=== PATIENT | female | born 1955 | race Asian ===

== ENCOUNTER 2017-01-10 14:27 | Inpatient (IN) | payer OTHER ==
[~2017-01-10] VITALS: Ht 149.9 cm; Wt 55.0 kg
[~2017-01-10 14:27] MED LIST: ACET-1257 PO; ASPCH81X PO; ATV/1 PO; BNT10 PO; CALC-354 PO; CZR50 PO; LPT10 PO; MTR500 PO; PLV75 PO; PRLSR20 PO; TPRSR/100 PO; VERA1TAB53 PO
[2017-01-10] MEDS ORDERED: ONDANSETRON 4MG OD TAB ONE (15:25)
[2017-01-10] MEDS ORDERED: VERA120T65 PO (15:33)
[2017-01-10] MEDS ORDERED: PLV75 PO (15:33)
[2017-01-10] MEDS ORDERED: CALCTAB23 PO (15:33)
[2017-01-10] MEDS ORDERED: LOSA100T65 PO (15:33)
[2017-01-10] MEDS ORDERED: LPT/20 PO (15:33)
[2017-01-10] MEDS ORDERED: AcetaZOLAMIDE 250 MG TAB PO STA (15:36)
[2017-01-10] MEDS ORDERED: BRIMONIDINE TARTRATE 0.2% 5ML OPR ONE (15:45)
[2017-01-10] MEDS ORDERED: BIMATOPROST 0.01% OP SOLN 2.5 ML BTL OPR ONE (15:45)
[2017-01-10] MEDS ORDERED: TIMOLOL MALEATE 0.5% OP SOLN 5 ML BTL OPR ONE (15:45)
[2017-01-10] MEDS ORDERED: PROPARACAINE HCL 0.5% OP SOLN 15 ML BTL OP STA (16:22)
[2017-01-10] MEDS ORDERED: PROPARACAINE HCL 0.5% OP SOLN 15 ML BTL ONE (16:23)
[2017-01-10] MEDS ORDERED: [UNRECOGNIZED DRUG - OTHER] OP SCH (18:00)
[2017-01-10] MEDS ORDERED: ONDANSETRON 4MG OD TAB PO ONE (18:30)
--- NOTE | 2017-01-10 19:25 | EMERGENCY ROOM VISIT NOTE ---
History Report prepared by Alfredo: Rosa M Osei Under the Supervision of: Dr. Josi Bell D.O. First contact with patient: 15:06 Chief Complaint: HEAD PAIN Stated Complaint: LASER EYE SURG. TODAY, PRESSURE IN HEAD NOW History of Present Illness The patient is a 61 year old female who presents to the Emergency Room with complaints of persistent right head pain starting several hours ago. The patient had laser eye surgery today in her right eye. She reports there was pressure in her right eye and they made a small hole to relieve some of the pressure. When she got home after the surgery about an hour later, she started having right sided head pain, neck stiffness, chills, diaphoresis, nausea, blurry vision, and generalized weakness. The eye doctor did tell her that she might have some blurry vision after the procedure, but not for this long. He did not mention headache. She has never experienced this type of headache before. She took Tylenol to no significant relief. She denies any abdominal pain , back pain, or numbness. Source of History: patient Onset: several hours ago Position: head (right side) Quality: other (pain) Timing: other (persistent) Associated Symptoms: + chills, + diaphoresis, + neck pain, + nausea, + weakness, No abdominal pain, No back pain, No numbness Note: Pt reports blurry vision. Review of Systems See HPI for pertinent positives & negatives. A total of 10 systems reviewed and were otherwise negative. Past Medical & Surgical Medical Problems: (1) Aortic valve sclerosis (2) C. difficile colitis (3) Cervical dysplasia (4) Cervical spinal stenosis (5) CVA (cerebral vascular accident) (6) Dyslipidemia (7) History of uterine cancer (8) Hypertension Nos (9) S/p breast lesion excision (10) Small bowel obstruction (11) TIA (transient ischemic attack) Surgical Problems: (1) Status post hysterectomy Family History CVA BROTHER (at age 48) Cancer MOTHER (unknown what type) Early CAD BROTHER (passed at age 53 from [place]) Social History Smoking Status: Never Smoker Alcohol Use: none Drug Use: none Housing Status: lives with family Current/Historical Medications Scheduled Atorvastatin (Atorvastatin Calcium), 20 MG PO HS Calcium Carbonate-Cholecalcife (Caltrate 600+D), 1 TABLET PO BID Calcium Carbonate-Vitamin D (Calcium 600-D), 1 TAB PO BID Clopidogrel Bisulfate (Clopidogrel), 75 MG PO DAILY Losartan Potassium (Cozaar), 100 MG PO DAILY Metoprolol Succinate (Metoprolol Succinate ER), 100 MG PO DAILY Prednisolone Sod Phos (Prednisolone Sodium Phosp), 1 DROPS OP Q2HWA Verapamil HCl (Verapamil HCl ER), 120 MG PO DAILY Scheduled PRN Acetaminophen (Tylenol Extra Strength), 1,000 MG PO Q8 PRN for Pain Allergies Coded Allergies: Cephalexin (Unverified Allergy, Severe, TONGUE SWELLING, 05/03/14) Ethanol (Verified Allergy, Severe, ANAPHYLAXIS, 05/03/14) Paclitaxel (Verified Allergy, Severe, ANAPHYLAXIS, 05/03/14) Polyoxyethylated [place] Oil (Verified Allergy, Severe, ANAPHYLAXIS, ) Physical Exam Vital Signs Date Time Temp Pulse Resp B/P (MAP) Pulse Ox O2 Delivery O2 Flow Rate FiO2 01/10/17 20:34 Room Air 01/10/17 19:44 74 17 155/75 95 Room Air 01/10/17 18:24 84 16 156/78 95 Room Air 01/10/17 18:00 73 16 159/76 97 Room Air 01/10/17 15:55 67 16 165/86 97 Room Air 01/10/17 14:31 36.5 74 18 96 Room Air Physical Exam GENERAL: alert, uncomfortable appearing, well nourished, no distress, non-toxic EYE EXAM: photosensitive, mild right anisocoria, no hyphema, no subconjunctival hemorrhage, no visual field cuts OROPHARYNX: no exudate, no erythema, lips, buccal mucosa, and tongue normal and mucous membranes are moist NECK: supple, no nuchal rigidity, no adenopathy, non-tender LUNGS: Clear to auscultation. Normal chest wall mechanics HEART: no murmurs, S1 normal and S2 normal ABDOMEN: abdomen soft, non-tender, normo-active bowel sounds, no masses, no rebound or guarding. BACK: Back is symmetrical on inspection and there is no deformity, no midline tenderness, no CVA tenderness. SKIN: no rashes and no bruising UPPER EXTREMITIES: upper extremities are grossly normal. LOWER EXTREMITIES: No pitting edema. NEURO EXAM: Normal sensorium, cranial nerves II-XII grossly intact, normal speech, no gross weakness of arms, no gross weakness of legs, no dysarthria. Medical Decision & Procedures Laboratory Results 01/10/17 19:30 Red Blood Count 4.82, Mean Corpuscular Volume 84.6, Mean Corpuscular Hemoglobin 29.0, Mean Corpuscular Hemoglobin Concent 34.3, Mean Platelet Volume 8.9, Neutrophils (%) (Auto) 73.7, Lymphocytes (%) (Auto) 21.8, Monocytes (%) (Auto) 3.7, Eosinophils (%) (Auto) 0.6, Basophils (%) (Auto) 0.1, Neutrophils # (Auto) 5.80, Lymphocytes # (Auto) 1.72, Monocytes # (Auto) 0.29, Eosinophils # (Auto) 0.05, Basophils # (Auto) 0.01 Test 01/10/17 19:30 White Blood Count 7.88 K/uL (4.8-10.8) Red Blood Count 4.82 M/uL (4.2-5.4) Hemoglobin 14.0 g/dL (12.0-16.0) Hematocrit 40.8 % (37-47) Mean Corpuscular Volume 84.6 fL (80-100) Mean Corpuscular Hemoglobin 29.0 pg (25-34) Mean Corpuscular Hemoglobin Concent 34.3 g/dl (32-36) Platelet Count 300 K/uL (130-400) Mean Platelet Volume 8.9 fL (7.4-10.4) Neutrophils (%) (Auto) 73.7 % Lymphocytes (%) (Auto) 21.8 % Monocytes (%) (Auto) 3.7 % Eosinophils (%) (Auto) 0.6 % Basophils (%) (Auto) 0.1 % Neutrophils # (Auto) 5.80 K/uL (1.4-6.5) Lymphocytes # (Auto) 1.72 K/uL (1.2-3.4) Monocytes # (Auto) 0.29 K/uL (0.11-0.59) Eosinophils # (Auto) 0.05 K/uL (0-0.5) Basophils # (Auto) 0.01 K/uL (0-0.2) RDW Standard Deviation 38.0 fL (36.4-46.3) RDW Coefficient of Variation 12.5 % (11.5-14.5) Immature Granulocyte % (Auto) 0.1 % Immature Granulocyte # (Auto) 0.01 K/uL (0.00-0.02) Osmolality 286 mOsm/kg (280-300) Magnesium Level 2.3 mg/dl (1.8-2.4) Medications Administered Medications (Trade) Dose Ordered Sig/Efren Route Start Time Stop Time Status Last Admin Dose Admin Ondansetron HCl (Zofran Odt) 4 mg STK-MED ONCE .ROUTE 01/10/17 15:25 01/10/17 15:26 DC 01/10/17 15:30 4 MG Acetazolamide (Diamox Tab) 500 mg NOW STAT PO 01/10/17 15:36 01/10/17 15:42 DC 01/10/17 15:52 500 MG Brimonidine Tartrate (Alphagan 0.2% Soln) 1 drops NOW ONCE OPR 01/10/17 15:45 01/10/17 15:47 DC 01/10/17 15:52 1 DROPS Timolol Maleate (Timoptic 0.5% Oph Soln) 1 drops NOW ONCE OPR 01/10/17 15:45 01/10/17 15:47 DC 01/10/17 15:52 1 DROPS Bimatoprost (Lumigan 0.01%) 1 drops NOW ONCE OPR 01/10/17 15:45 01/10/17 15:47 DC 01/10/17 15:53 1 DROPS Prednisolone Sodium Phosphate (Inflamase-Forte Soln) 1 drops Q2HWA OP 01/10/17 18:00 01/10/17 21:44 DC 01/10/17 17:39 1 DROPS Ondansetron HCl (Zofran Odt) 4 mg ONE ONCE PO 01/10/17 18:30 01/10/17 18:31 DC 01/10/17 18:36 4 MG Mannitol 275 ml/ Empty Bag 275 ml @ 366.667 mls/hr NOW ONCE IV 01/10/17 19:30 01/10/17 20:14 DC 01/10/17 19:37 366.667 MLS/HR Procedure Bedside puff tonometer reveals right eye pressure in the 70s. ED Course 1510: The patient was evaluated in room C6. A complete history and physical exam was performed. 1515: I discussed the patient's case with Dr. Ashley, [facility] - ophthalmology. He will come to see the patient. 1520: Bedside puff tonometer was performed. 1525: Zofran Odt 4 mg PO. 1531: Dr. Ashley has provided specific instructions for eyedrops and Diamox. The drops will be repeated and IOP will be reassessed. 1536: Diamox Tab 500 mg PO. 1545: Bimatoprost 1 drops OPR, Timolol Maleate 1 drops OPR, Brimonidine Tartrate 1 drops OPR. 1620: Dr. Ashley is at bedside examining the patient. 1623: Proparacaine HCl 2 drop OPR. 1630: I reevaluated the patient. I updated her on the results. Dr. Ashley has examined the patient. 1656: I reevaluated the patient. She is resting comfortably. 1730: I reevaluated the patient. Her pressures are still high. 1810: I reevaluated the patient. Her pressure is still elevated in the 70s. 181: I spoke with Dr. Ashley. He recommends another round of eye drops. 1800: Prednisolone Sodium Phosphate 1 drops OP. 1900: Repeat right IOP with tonopen 64. Pt still having WAGGONER and complaining of worsening vision. 1906: Updated Dr. Ashley on IOP and pt condition. At this time, advises pt should be given IV mannitol and agrees with admission for additional monitoring. Prednisolone should still be given every 2 hours and all other drops every 6 hours. Discussed with ed pharmacist. She will calculate dose/ mix of med. 1946: Updated Dr. Ashley again. Recommends diamox 500 mg at 2300 and another dose in the morning. Medical Decision Medication Reconciliation: I attest that I have personally reviewed the patient' s current medication list. Blood pressure screening: Patient was found to have an elevated blood pressure and was referred to their primary doctor for recheck and further treatment. Multiple repeat bedside evaluations and repeat discussion with ophtho. Concern for risk of permanent vision loss/damage due to elevated IOP. Pt with persistent sx despite initiation of several drops and oral medication in the ER and after repeat IOP assessments and discussion, ophtho advised IV mannitol. Pt admitted, baseline labs pulled due to use of mannitol and possible ADR's. Pt aware of plan, discussion with Dr. Roa, need for additional treatment , risks of treatment and risks of current condition. She verbalized understanding and is agreeable. Pt with otw non focal neuro exam, doubt cva/ dissection/ich/cvs thrombus/meningitis. given timing of sx onset after procedure, most likely likely post procedural complication. Consults Time Called: 1513 Consulting Physician: Dr. Ashley [facility] - ophthalmology Returned Call: 1514 I discussed the patient's case with him. He will come to see the patient. Additional Consults: Time Called: 1934 Consulted Physician: [facility] Returned Call: 1939 Additional Comments: Discussed with Dr. Gagnon. Impression Primary Impression: Acute angle-closure glaucoma of right eye Additional Impressions: Visual changes Headache Post surgical complication Critical Care I have personally spent 60 minutes of critical care time in the direct management of this patient. This includes bedside care, interpretation of diagnostic studies, and testing, discussion with consultants, patient, and family members, and other required patient management activities. This 60 minutes is in excess of all separately billable procedures. Involved system: ophthamology Scribe Attestation The scribe's documentation has been prepared under my direction and personally reviewed by me in its entirety. I confirm that the note above accurately reflects all work, treatment, procedures, and medical decision making performed by me. Departure Information Prescriptions Prednisolone Sod Phos (Prednisolone Sodium Phosp) 150 Drops/10 Ml Soln 1 DROPS OP Q2HWA for 30 Days, #1 BTL Prov: Keshia Ramos, DO 01/11/17 Referrals No Doctor, Assigned (PCP) Patient Instructions [facility] Problem Qualifiers Additional Impressions: Headache Headache type: unspecified Headache chronicity pattern: acute headache Intractability: not intractable Qualified Codes: R51 - Headache Post surgical complication Surgical complication system/body Area: eye Surgical complication type: other Qualified Codes: H59.89 - Other postprocedural complications and disorders of eye and adnexa, not elsewhere classified
[2017-01-10] MEDS ORDERED: MANNITOL 20% IV ONE (19:30)
[2017-01-10] MEDS ORDERED: 0.2 MICRON FILTER SET 1 EA IV ONE ×2 (19:30)
[2017-01-10 20:05] LABS: BASO % 0.1 %; BASO ABS # 0.01 K/uL (0-0.2); COMPLETE YES; EOS % 0.6 %; HEMATOCRIT 40.8 % (37-47); IG% 0.1 %; LYMPH % 21.8 %; LYMPH ABS # 1.72 K/uL (1.2-3.4); MEAN CELL VOLUME 84.6 fL (80-100); MEAN CORPUSCULAR HGB CONC 34.3 g/dl (32-36); MEAN PLATELET VOLUME 8.9 fL (7.4-10.4); MONO % 3.7 %; NEUT % 73.7 %; PLATELET COUNT 300 K/uL (130-400); RED BLOOD COUNT 4.82 M/uL (4.2-5.4); WHITE BLOOD COUNT 7.88 K/uL (4.8-10.8)
[2017-01-10 20:09] LABS: BUN/CREATININE RATIO 17.4 (10-20); CALCIUM 8.8 mg/dl (8.5-10.1); CREATININE 0.63 mg/dl (0.60-1.20); MAGNESIUM 2.3 mg/dl (1.8-2.4); POTASSIUM 3.5 mmol/L (3.5-5.1)
--- NOTE | 2017-01-10 20:19 | OPHTHALMOLOGY CONSULTATION ---
DATE OF CONSULTATION: 01/10/2017 CHIEF COMPLAINT: Right eye pain and nausea. HISTORY OF PRESENT ILLNESS: The patient is a very pleasant 61-year-old, who was at our office this morning and had a laser peripheral iridotomy done on the right eye. Her 1-hour pressure check following her laser, pressure measured 30 in the right eye and she was sent home with instructions to come back for further monitoring in the office over the next couple of days. However, during the day she developed worsening eye pain and nausea and presented to the Emergency Room. The Emergency Room staff measured her pressure and found it to be 74 by the air puff tonometer. The ER called our office and I gave instructions to give her a dose of oral Diamox 500 mg, topical timolol, topical brimonidine, and topical latanoprost. At the time of my exam, her nausea has improved some, although she still has significant head pain. PHYSICAL EXAMINATION: Visual acuity as measured on a near card with reading glasses was 20/70 in the right eye. The right pupil was mid dilated. The anterior chamber was deep, but there was some edema of the cornea and anterior chamber cellular reaction. There was a LPI superiorly, but there was a small amount of debri in that area and so I could not make 100% determination that the iridotomy was patent. The lens had 1+ nuclear sclerosis. Fundus examination showed a cup to disc ratio of 0.5 on the right. The rest of the exam was unremarkable. Pressure as measured by Fady-Pen by me was 63 in the right eye and 28 in the left eye. IMPRESSION: Ms. Barreto is having a pressure spike following a laser peripheral iridotomy in the right eye. I have advised the Emergency Room staff to give her another dose of her topical medications in about 10 minutes. She is then to recheck her pressure in half an hour. Once her pressure is in the 30s, I have advised that she can be discharged with instructions to continue using her drops every 6 hours. In addition, I have added prednisolone drops every 2 hours to the right eye. She should also use her Diamox 500 mg tonight and then 500 mg tomorrow morning and then she should be seen in our office. If the pressure cannot be lowered into the 30s than I have given instructions to the Emergency Room staff to give her a dose of IV mannitol. If the pressure still does not respond, then they are to call me again for further instructions. I can be reached at [phone] with any questions. SERENITY
[2017-01-10] MEDS ORDERED: POTASSIUM CHLORIDE 10 MEQ TABCR PO STA (20:27)
[2017-01-10 20:34] VITALS: Ht 149.9 cm; Wt 55.0 kg
[2017-01-10] MEDS ORDERED: POTASSIUM CHLORIDE 10 MEQ TABCR ONE (20:46)
--- NOTE | 2017-01-10 21:03 | History and Physical ---
History & Physical Date & Time of Service: Jan 10, 2017 at 20:29 Chief Complaint: Laser Eye Surg. Today, Pressure In Head Now Primary Care Physician: Dr. June Lantigua History of Present Illness Source: patient, clinic records This is a 61 year old female with PMH of CVA, HTN, HL, uterine CA s/p surgery and chemo, and other problems listed below who presents to the ED for right sided headache. Patient underwent laser peripheral iridotomy on the right eye today by Dr. Ashley. Pt states after she got home from surgery she developed sharp right sided headache, right eye blurry vision, and nausea. She took Tylenol at home without relief. She states pain was rated 10/10 initially and now improved to 8/10. Vision is still blurred in right eye. In the ER patient was found to have elevated intraocular pressure. She was seen by her machine tester Dr. Ashley in the ER. She was treated with oral Diamox and topical timolol, brimonidine, and latanoprost. Intraocular pressure remained elevated. She is now being given a dose of IV mannitol. She reports feeling anxious in the ER. She denies chest pain, SOB, vomiting, abdominal pain, vomiting, diarrhea, urinary changes. Pt reports missing her medications today. Past Medical/Surgical History Medical Problems: (1) Aortic valve sclerosis Status: Chronic (2) C. 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 Status: Chronic (6) Dyslipidemia Status: Chronic (7) History of uterine cancer Permanent Comment: s/p surgery and chemo Status: Chronic (8) Hypertension Nos Status: Chronic (9) S/p breast lesion excision Status: Chronic (10) Small bowel obstruction Status: Resolved (11) TIA (transient ischemic attack) Status: Chronic Surgical Problems: (1) Status post hysterectomy Permanent Comment: uterine Ca Status: Chronic Family History CVA BROTHER (at age 48) Cancer MOTHER (unknown what type) Early CAD BROTHER (passed at age 55 from [place]) Social History Smoking Status: Never Smoker Alcohol Use: none Drug Use: none Housing status: lives with family (with daughter) Immunizations History of Influenza Vaccine: Unknown History of Tetanus Vaccine?: Unknown History of Pneumococcal: Unknown History of Hepatitis B Vaccine: Unknown Allergies Coded Allergies: Cephalexin (Unverified Allergy, Severe, TONGUE SWELLING, 05/03/14) Ethanol (Verified Allergy, Severe, ANAPHYLAXIS, 05/03/14) Paclitaxel (Verified Allergy, Severe, ANAPHYLAXIS, 05/03/14) Polyoxyethylated [place] Oil (Verified Allergy, Severe, ANAPHYLAXIS, ) Home Medications Scheduled Atorvastatin (Atorvastatin Calcium), 20 MG PO HS Calcium Carbonate-Cholecalcife (Caltrate 600+D), 1 TABLET PO BID Calcium Carbonate-Vitamin D (Calcium 600-D), 1 TAB PO BID Clopidogrel Bisulfate (Clopidogrel), 75 MG PO DAILY Losartan Potassium (Cozaar), 100 MG PO DAILY Metoprolol Succinate (Metoprolol Succinate ER), 100 MG PO DAILY Verapamil HCl (Verapamil HCl ER), 120 MG PO DAILY Scheduled PRN Acetaminophen (Tylenol Extra Strength), 1,000 MG PO Q8 PRN for Pain Review of Systems Ten systems reviewed and negative except as noted in HPI. Physical Exam Vital Signs Date Time Temp Pulse Resp B/P (MAP) Pulse Ox O2 Delivery O2 Flow Rate FiO2 01/10/17 19:44 74 17 155/75 95 Room Air 01/10/17 18:24 84 16 156/78 95 Room Air 01/10/17 18:00 73 16 159/76 97 Room Air 01/10/17 15:55 67 16 165/86 97 Room Air 01/10/17 14:31 36.5 74 18 96 Room Air General Appearance: WD/WN, no apparent distress, + pertinent finding (alert cooperative 61 year old female) Head: normocephalic, atraumatic Eyes: normal inspection, EOMI, sclerae normal, + pertinent finding (right pupil moderately dilated. left pupil reactive to light. vision 20/50 in right eye. 20/20 in left eye.) ENT: hearing grossly normal, pharynx normal Neck: supple, trachea midline Respiratory/Chest: lungs clear, normal breath sounds, no respiratory distress, no accessory muscle use Cardiovascular: regular rate, rhythm, + systolic murmur (grade II) Abdomen/GI: normal bowel sounds, non tender, soft Extremities/Musculoskelatal: no calf tenderness, no pedal edema Neurologic/Psych: alert, normal mood/affect, oriented x 3 Skin: normal color, warm/dry Diagnostics Laboratory Results Results Past 24 Hours Test 01/10/17 19:30 Range/Units White Blood Count 7.88 4.8-10.8 K/uL Red Blood Count 4.82 4.2-5.4 M/uL Hemoglobin 14.0 12.0-16.0 g/dL Hematocrit 40.8 37-47 % Mean Corpuscular Volume 84.6 80-100 fL Mean Corpuscular Hemoglobin 29.0 25-34 pg Mean Corpuscular Hemoglobin Concent 34.3 32-36 g/dl Platelet Count 300 130-400 K/uL Mean Platelet Volume 8.9 7.4-10.4 fL Neutrophils (%) (Auto) 73.7 % Lymphocytes (%) (Auto) 21.8 % Monocytes (%) (Auto) 3.7 % Eosinophils (%) (Auto) 0.6 % Basophils (%) (Auto) 0.1 % Neutrophils # (Auto) 5.80 1.4-6.5 K/uL Lymphocytes # (Auto) 1.72 1.2-3.4 K/uL Monocytes # (Auto) 0.29 0.11-0.59 K/uL Eosinophils # (Auto) 0.05 0-0.5 K/uL Basophils # (Auto) 0.01 0-0.2 K/uL RDW Standard Deviation 38.0 36.4-46.3 fL RDW Coefficient of Variation 12.5 11.5-14.5 % Immature Granulocyte % (Auto) 0.1 % Immature Granulocyte # (Auto) 0.01 0.00-0.02 K/uL Sodium Level 140 136-145 mmol/L Potassium Level 3.5 3.5-5.1 mmol/L Chloride Level 107 98-107 mmol/L Carbon Dioxide Level 25 21-32 mmol/L Anion Gap 8.0 3-11 mmol/L Blood Urea Nitrogen 11 7-18 mg/dl Creatinine 0.63 0.60-1.20 mg/dl Est Creatinine Clear Calc Drug Dose 69.2 ml/min Estimated GFR () 110.6 Estimated GFR (Non- 95.5 BUN/Creatinine Ratio 17.4 10-20 Random Glucose 100 70-99 mg/dl Osmolality 286 280-300 mOsm/kg Calcium Level 8.8 8.5-10.1 mg/dl Magnesium Level 2.3 1.8-2.4 mg/dl Impression Assessment and Plan ELEVATED INTRAOCULAR PRESSURE S/p laser peripheral iridotomy on the right eye today 01/10/[address] Ashley Treated in ER with oral Diamox and topical timolol, brimonidine, and latanoprost ; intraocular pressure remained elevated; now being given IV mannitol Seen by Dr. Ashley in ER; case will be discussed with him by admitting attending HYPERTENSION BP moderately elevated in ER to 150s-160s Likely due to pain/ anxiety and missed her usual antihypertensives today Continue losartan, metoprolol, verapamil CEREBROVASCULAR DISEASE Continue Plavix and statin GERD Continue PPI DISPOSITION Admit to med/ surg Lives with daughter Follows with Dr. June Lantigua for primary care Patient seen in collaboration with Dr. Louise. Please see his addendum for additional recommendations. Assessment/Plan IM ATTENDING : Hx obtained from px and records. Patient seen and examined. Preceding documentation by Ruma Fitzgerald PA-C, reviewed. FINAL ASSESSMENT AND PLAN as follows : 1. acute narrow angle closure glaucoma, R recent R eye laser iridotomy some improvement after initial intervention in the ER 2. hypertension, slightly elevated 3. hx cerebrovascular accident 4. hx uterine CA sp surgery GMF analgesia, anti-emetics monitor response IOP response to IV mannitol and Diamox Further management as per px's machine tester (Dr. Ashley) continue home BP meds DVT prophylaxis, SCDs. Full code.
[2017-01-10 21:17] VITALS: O2SAT 97
[2017-01-10] MEDS ORDERED: CLOPIDOGREL BISULFATE 75 MG TAB PO ONE (21:22)
[2017-01-10] MEDS ORDERED: LOSARTAN POTASSIUM 50 MG TAB PO ONE (21:22)
[2017-01-10] MEDS ORDERED: ATORVASTATIN 20 MG TAB PO ONE (21:22)
[2017-01-10] MEDS ORDERED: MoRPHine SULFATE 4 MG/ML 1 ML CARP\\VIAL IV PRN (21:30)
[2017-01-10] MEDS ORDERED: ONDANSETRON INJ 2 MG/ML 2 ML VIAL IV PRN (21:30)
[2017-01-10] MEDS ORDERED: TRAMADOL HCL 50 MG TAB PO PRN (21:30)
[2017-01-10 21:40] VITALS: BP 159/105; PULSE 70; O2SAT 97
[2017-01-10] MEDS: [UNRECOGNIZED DRUG - OTHER] OP SCH (22:37)
[2017-01-10] MEDS ORDERED: AcetaZOLAMIDE 250 MG TAB PO ONE (23:00)
[2017-01-10] MEDS ORDERED: AcetaZOLAMIDE 250 MG TAB PO SCH (23:00)
[2017-01-11] MEDS: [UNRECOGNIZED DRUG - OTHER] OP SCH ×5 (06:01→14:10)
--- NOTE | 2017-01-11 06:04 | HISTORY & PHYSICAL EXAMINATION ---
DATE OF ADMISSION: 01/10/2017 IM ATTENDING : Olinda obtained from px and records. Patient seen and examined. Preceding documentation by Ruma Fitzgerald PA-C, reviewed. FINAL ASSESSMENT AND PLAN as follows : 1. acute narrow angle closure glaucoma, R recent R eye laser iridotomy some improvement after initial intervention in the ER 2. hypertension, slightly elevated 3. hx cerebrovascular accident 4. hx uterine CA sp surgery GMF analgesia, anti-emetics monitor response IOP response to IV mannitol and Diamox Further management as per px's air tucker (Dr. Ashley) continue home BP meds DVT prophylaxis, SCDs. Full code. MTDD
[2017-01-11 07:30] VITALS: BP 105/66; PULSE 53; TEMP 36.5; O2SAT 97
[2017-01-11] MEDS: ACETAMINOPHEN 325 MG TAB PO PRN ×2 (07:50→14:10)
[2017-01-11 07:51] LABS: BUN/CREATININE RATIO 15.4 (10-20); CALCIUM 8.8 mg/dl (8.5-10.1); CREATININE 0.92 mg/dl (0.60-1.20); POTASSIUM 4.3 mmol/L (3.5-5.1)
[2017-01-11] MEDS ORDERED: CLOPIDOGREL BISULFATE 75 MG TAB PO SCH (08:00)
[2017-01-11] MEDS ORDERED: AcetaZOLAMIDE 250 MG TAB PO ONE (08:00)
[2017-01-11] MEDS ORDERED: LOSARTAN POTASSIUM 50 MG TAB PO SCH (08:00)
[2017-01-11] MEDS ORDERED: METOPROLOL SUCC 50MG EXT REL TAB PO SCH (08:00)
[2017-01-11] MEDS ORDERED: VERAPAMIL HCL 120 MG TABCR PO SCH (12:00)
[2017-01-11] MEDS ORDERED: [UNRECOGNIZED DRUG - CODE] OP (14:45)
--- NOTE | 2017-01-11 14:47 | Discharge Instructions ---
Discharge Instructions Date of Service Jan 11, 2017. Admission Reason for Admission: Acute Angle-Closure Glaucoma Of Right Eye Discharge Discharge Diagnosis / Problem: Acute Angle-Closure Glaucoma of R Eye Discharge Goals Goal(s): Decrease discomfort, Improve function, Diagnostic testing, Therapeutic intervention Activity Recommendations Activity Limitations: resume your previous activity . Instructions / Follow-Up Instructions / Follow-Up Please follow-up with ophthalmology Please follow-up with Dr. June Lantigua (you will get a call with date/time) Current Hospital Diet Patient's current hospital diet: AHA Diet (Heart Healthy) Discharge Diet Recommended Diet: AHA Diet (Heart Healthy) Pending Studies Studies pending at discharge: no Medical Emergencies . Who to Call and When: Medical Emergencies: If at any time you feel your situation is an emergency, please call 911 immediately. . Non-Emergent Contact Non-Emergency issues call your: Primary Care Provider . . "Provider Documentation" section prepared by Keshia Ramos. . VTE Core Measure Inpt VTE Proph given/why not?: SCD's
--- NOTE | 2017-01-11 14:49 | Discharge Summary ---
Discharge Summary Date of Service Jan 11, 2017. Discharge Summary Admission Date: Jan 10, 2017 at 20:34 Discharge Date: Jan 11, 2017 Discharge Disposition: Home Principal Diagnosis: Acute Angle Glaucoma of R Eye Medication Reconciliation New Medications: Prednisolone Sod Phos (Prednisolone Sodium Phosp) 150 Drops/10 Ml Soln 1 DROPS OP Q2HWA for 30 Days, #1 BTL Continued Medications: Acetaminophen (Tylenol Extra Strength) 500 Mg Tab 1000 MG PO Q8 PRN for Pain Atorvastatin (Atorvastatin Calcium) 20 Mg Tab 20 MG PO HS, #30 Calcium Carbonate-Cholecalcife (Caltrate 600+D) 1 Tab Tab 1 TABLET PO BID Calcium Carbonate-Vitamin D (Calcium 600-D) 1 Tab Tab 1 TAB PO BID, #60 Clopidogrel Bisulfate (Clopidogrel) 75 Mg Tab 75 MG PO DAILY, #30 Losartan Potassium (Cozaar) 100 Mg Tab 100 MG PO DAILY, #30 Metoprolol Succinate (Metoprolol Succinate ER) 100 Mg Tabcr 100 MG PO DAILY Verapamil HCl (Verapamil HCl ER) 120 Mg Tabcr 120 MG PO DAILY, #30 Admission Information HPI (per Admitting provider): This is a 61 year old female with PMH of CVA, HTN, HL, uterine CA s/p surgery and chemo, and other problems listed below who presents to the ED for right sided headache. Patient underwent laser peripheral iridotomy on the right eye today by Dr. Ashley. Pt states after she got home from surgery she developed sharp right sided headache, right eye blurry vision, and nausea. She took Tylenol at home without relief. She states pain was rated 10/10 initially and now improved to 8/10. Vision is still blurred in right eye. In the ER patient was found to have elevated intraocular pressure. She was seen by her soft work cigar machine operator Dr. Ashley in the ER. She was treated with oral Diamox and topical timolol, brimonidine, and latanoprost. Intraocular pressure remained elevated. She is now being given a dose of IV mannitol. She reports feeling anxious in the ER. She denies chest pain, SOB, vomiting, abdominal pain, vomiting, diarrhea, urinary changes. Pt reports missing her medications today. Physical Exam (per Admitting): General Appearance: WD/WN, no apparent distress, + pertinent finding (alert cooperative 61 year old female) Head: normocephalic, atraumatic Eyes: normal inspection, EOMI, sclerae normal, + pertinent finding (right pupil moderately dilated. left pupil reactive to light. vision 20/50 in right eye. 20/20 in left eye.) ENT: hearing grossly normal, pharynx normal Neck: supple, trachea midline Respiratory/Chest: lungs clear, normal breath sounds, no respiratory distress, no accessory muscle use Cardiovascular: regular rate, rhythm, + systolic murmur (grade II) Abdomen/GI: normal bowel sounds, non tender, soft Extremities/Musculoskelatal: no calf tenderness, no pedal edema Neurologic/Psych: alert, normal mood/affect, oriented x 3 Skin: normal color, warm/dry Hospital Course History of Present Illness Source: patient, clinic records This is a 61 year old female with PMH of CVA, HTN, HL, uterine CA s/p surgery and chemo, and other problems listed below who presents to the ED for right sided headache. Patient underwent laser peripheral iridotomy on the right eye today by Dr. Ashley. Pt states after she got home from surgery she developed sharp right sided headache, right eye blurry vision, and nausea. She took Tylenol at home without relief. She states pain was rated 10/10 initially and now improved to 8/10. Vision is still blurred in right eye. In the ER patient was found to have elevated intraocular pressure. She was seen by her soft work cigar machine operator Dr. Ashley in the ER. She was treated with oral Diamox and topical timolol, brimonidine, and latanoprost. Intraocular pressure remained elevated. She is now being given a dose of IV mannitol. She reports feeling anxious in the ER. She denies chest pain, SOB, vomiting, abdominal pain, vomiting, diarrhea, urinary changes. Pt reports missing her medications today. Past Medical/Surgical History Medical Problems: (1) Aortic valve sclerosis Status: Chronic (2) C. 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 Status: Chronic (6) Dyslipidemia Status: Chronic (7) History of uterine cancer Permanent Comment: s/p surgery and chemo Status: Chronic (8) Hypertension Nos Status: Chronic (9) S/p breast lesion excision Status: Chronic (10) Small bowel obstruction Status: Resolved (11) TIA (transient ischemic attack) Status: Chronic Surgical Problems: (1) Status post hysterectomy Permanent Comment: uterine Ca Status: Chronic Family History CVA BROTHER (at age 48) Cancer MOTHER (unknown what type) Early CAD BROTHER (passed at age 55 from [place]) Social History Smoking Status: Never Smoker Alcohol Use: none Drug Use: none Housing status: lives with family (with daughter) Immunizations History of Influenza Vaccine: Unknown History of Tetanus Vaccine?: Unknown History of Pneumococcal: Unknown History of Hepatitis B Vaccine: Unknown Allergies Coded Allergies: Cephalexin (Unverified Allergy, Severe, TONGUE SWELLING, 05/03/14) Ethanol (Verified Allergy, Severe, ANAPHYLAXIS, 05/03/14) Paclitaxel (Verified Allergy, Severe, ANAPHYLAXIS, 05/03/14) Polyoxyethylated [place] Oil (Verified Allergy, Severe, ANAPHYLAXIS, ) Home Medications Scheduled Atorvastatin (Atorvastatin Calcium), 20 MG PO HS Calcium Carbonate-Cholecalcife (Caltrate 600+D), 1 TABLET PO BID Calcium Carbonate-Vitamin D (Calcium 600-D), 1 TAB PO BID Clopidogrel Bisulfate (Clopidogrel), 75 MG PO DAILY Losartan Potassium (Cozaar), 100 MG PO DAILY Metoprolol Succinate (Metoprolol Succinate ER), 100 MG PO DAILY Verapamil HCl (Verapamil HCl ER), 120 MG PO DAILY Scheduled PRN Acetaminophen (Tylenol Extra Strength), 1,000 MG PO Q8 PRN for Pain Review of Systems Ten systems reviewed and negative except as noted in HPI. Physical Exam Vital Signs Date Time Temp Pulse Resp B/P (MAP) Pulse Ox O2 Delivery O2 Flow Rate FiO2 01/10/17 19:44 74 17 155/75 95 Room Air 01/10/17 18:24 84 16 156/78 95 Room Air 01/10/17 18:00 73 16 159/76 97 Room Air 01/10/17 15:55 67 16 165/86 97 Room Air 01/10/17 14:31 36.5 74 18 96 Room Air General Appearance: WD/WN, no apparent distress, + pertinent finding (alert cooperative 61 year old female) Head: normocephalic, atraumatic Eyes: normal inspection, EOMI, sclerae normal, + pertinent finding (right pupil moderately dilated. left pupil reactive to light. vision 20/50 in right eye. 20/20 in left eye.) ENT: hearing grossly normal, pharynx normal Neck: supple, trachea midline Respiratory/Chest: lungs clear, normal breath sounds, no respiratory distress, no accessory muscle use Cardiovascular: regular rate, rhythm, + systolic murmur (grade II) Abdomen/GI: normal bowel sounds, non tender, soft Extremities/Musculoskelatal: no calf tenderness, no pedal edema Neurologic/Psych: alert, normal mood/affect, oriented x 3 Skin: normal color, warm/dry Diagnostics Laboratory Results Results Past 24 Hours Test 01/10/17 19:30 Range/Units White Blood Count 7.88 4.8-10.8 K/uL Red Blood Count 4.82 4.2-5.4 M/uL Hemoglobin 14.0 12.0-16.0 g/dL Hematocrit 40.8 37-47 % Mean Corpuscular Volume 84.6 80-100 fL Mean Corpuscular Hemoglobin 29.0 25-34 pg Mean Corpuscular Hemoglobin Concent 34.3 32-36 g/dl Platelet Count 300 130-400 K/uL Mean Platelet Volume 8.9 7.4-10.4 fL Neutrophils (%) (Auto) 73.7 % Lymphocytes (%) (Auto) 21.8 % Monocytes (%) (Auto) 3.7 % Eosinophils (%) (Auto) 0.6 % Basophils (%) (Auto) 0.1 % Neutrophils # (Auto) 5.80 1.4-6.5 K/uL Lymphocytes # (Auto) 1.72 1.2-3.4 K/uL Monocytes # (Auto) 0.29 0.11-0.59 K/uL Eosinophils # (Auto) 0.05 0-0.5 K/uL Basophils # (Auto) 0.01 0-0.2 K/uL RDW Standard Deviation 38.0 36.4-46.3 fL RDW Coefficient of Variation 12.5 11.5-14.5 % Immature Granulocyte % (Auto) 0.1 % Immature Granulocyte # (Auto) 0.01 0.00-0.02 K/uL Sodium Level 140 136-145 mmol/L Potassium Level 3.5 3.5-5.1 mmol/L Chloride Level 107 98-107 mmol/L Carbon Dioxide Level 25 21-32 mmol/L Anion Gap 8.0 3-11 mmol/L Blood Urea Nitrogen 11 7-18 mg/dl Creatinine 0.63 0.60-1.20 mg/dl Est Creatinine Clear Calc Drug Dose 69.2 ml/min Estimated GFR () 110.6 Estimated GFR (Non- 95.5 BUN/Creatinine Ratio 17.4 10-20 Random Glucose 100 70-99 mg/dl Osmolality 286 280-300 mOsm/kg Calcium Level 8.8 8.5-10.1 mg/dl Magnesium Level 2.3 1.8-2.4 mg/dl Impression Assessment and Plan ELEVATED INTRAOCULAR PRESSURE S/p laser peripheral iridotomy on the right eye today 01/10/[address] Ashley Treated in ER with oral Diamox and topical timolol, brimonidine, and latanoprost ; intraocular pressure remained elevated; now being given IV mannitol Seen by Dr. Ashley in ER; case will be discussed with him by admitting attending HYPERTENSION BP moderately elevated in ER to 150s-160s Likely due to pain/ anxiety and missed her usual antihypertensives today Continue losartan, metoprolol, verapamil CEREBROVASCULAR DISEASE Continue Plavix and statin GERD Continue PPI DISPOSITION Admit to med/ surg Lives with daughter Follows with Dr. June Lantigua for primary care Patient seen in collaboration with Dr. Louise. Please see his addendum for additional recommendations. Assessment/Plan IM ATTENDING : Olinda obtained from px and records. Patient seen and examined. Preceding documentation by Ruma Fitzgerald PA-C, reviewed. FINAL ASSESSMENT AND PLAN as follows : 1. acute narrow angle closure glaucoma, R recent R eye laser iridotomy some improvement after initial intervention in the ER 2. hypertension, slightly elevated 3. hx cerebrovascular accident 4. hx uterine CA sp surgery GMF analgesia, anti-emetics monitor response IOP response to IV mannitol and Diamox Further management as per px's soft work cigar machine operator (Dr. Ashley) continue home BP meds DVT prophylaxis, SCDs. Full code. Total time spent on discharge = 33 minutes This includes examination of the patient, discharge planning, medication reconciliation, and communication with other providers. Discharge Instructions Please follow-up with ophthalmology Please follow-up with Dr. June Lantigua (you will get a call with date/time)
--- NOTE | 2017-01-11 15:04 | Progress Note ---
Subjective Date of Service: Jan 11, 2017. Subjective Pt evaluation today including: conversation w/ patient, physical exam, lab review, review of studies, review of inpatient medication list Saw/examined the patient in room 454 Doing well; right sided headache resolved; did c/o left side headache, which is improved with Tylenol spoke with ophthalmology - will need to be discharged for outpatient eye exam/ pressure Problem List Medical Problems: (1) Acute angle-closure glaucoma of right eye Status: Acute Review of Systems Constitutional: No fever, No chills Eyes: + eye pain (improving), No worsening of vision, No redness, No discharge , No diplopia ENT: + problem reported (headache) Respiratory: No shortness of breath Cardiac: No chest pain Abdomen: No pain, No nausea, No vomiting, No diarrhea Female : No dysuria, No urinary frequency Medications Current Inpatient Medications Medications (Trade) Dose Ordered Sig/Efren Route Start Time Stop Time Status Last Admin Dose Admin Atorvastatin Calcium (Lipitor Tab) 20 mg HS PO 01/11/17 21:00 02/10/17 20:59 Clopidogrel Bisulfate (plAVix TAB) 75 mg DAILY PO 01/11/17 08:00 02/10/17 08:59 01/11/17 07:51 75 MG Losartan Potassium (coZAAR TAB) 100 mg DAILY PO 01/11/17 08:00 02/10/17 08:59 01/11/17 07:51 100 MG Verapamil HCl (Calan-Sr Tab) 120 mg DAILY PO 01/11/17 12:00 02/10/17 11:59 01/11/17 12:07 120 MG Metoprolol Succinate (Toprol Xl Tab) 100 mg DAILY PO 01/11/17 08:00 02/10/17 08:59 01/11/17 07:53 100 MG Ondansetron HCl (Zofran Inj) 4 mg Q6H PRN IV 01/10/17 21:30 02/09/17 21:29 Tramadol HCl (Ultram Tab) 25 mg Q6H PRN PO 01/10/17 21:30 02/09/17 21:29 Morphine Sulfate (MoRPHine SULFATE INJ) 4 mg Q3H PRN IV 01/10/17 21:30 01/24/17 21:29 Acetaminophen (Tylenol Tab) 650 mg Q4H PRN PO 01/10/17 21:30 02/09/17 21:29 01/11/17 14:10 650 MG Prednisolone Sodium Phosphate (Inflamase-Forte Soln) 1 drops Q2HWA OP 01/11/17 06:00 02/10/17 05:59 01/11/17 14:10 1 DROPS Objective Vital Signs Date Time Temp Pulse Resp B/P (MAP) Pulse Ox O2 Delivery O2 Flow Rate FiO2 01/11/17 07:55 Room Air 01/11/17 07:30 36.5 53 16 105/66 (79) 97 Room Air 01/11/17 00:00 Room Air 01/10/17 21:40 70 18 159/105 (123) 97 Room Air 01/10/17 21:17 68 18 131/61 97 Room Air 01/10/17 20:34 Room Air 01/10/17 19:44 74 17 155/75 95 Room Air 01/10/17 18:24 84 16 156/78 95 Room Air 01/10/17 18:00 73 16 159/76 97 Room Air 01/10/17 15:55 67 16 165/86 97 Room Air Physical Exam General Appearance: no apparent distress Eyes: normal inspection, EOMI Respiratory/Chest: lungs clear, normal breath sounds, no respiratory distress, no accessory muscle use Cardiovascular: regular rate, rhythm, no edema, no murmur Abdomen: normal bowel sounds, non tender, soft Neurologic/Psychiatric: no motor/sensory deficits, alert, normal mood/affect Laboratory Results Last 24 Hours Test 01/10/17 19:30 01/11/17 06:35 White Blood Count 7.88 K/uL Red Blood Count 4.82 M/uL Hemoglobin 14.0 g/dL Hematocrit 40.8 % Mean Corpuscular Volume 84.6 fL Mean Corpuscular Hemoglobin 29.0 pg Mean Corpuscular Hemoglobin Concent 34.3 g/dl Platelet Count 300 K/uL Mean Platelet Volume 8.9 fL Neutrophils (%) (Auto) 73.7 % Lymphocytes (%) (Auto) 21.8 % Monocytes (%) (Auto) 3.7 % Eosinophils (%) (Auto) 0.6 % Basophils (%) (Auto) 0.1 % Neutrophils # (Auto) 5.80 K/uL Lymphocytes # (Auto) 1.72 K/uL Monocytes # (Auto) 0.29 K/uL Eosinophils # (Auto) 0.05 K/uL Basophils # (Auto) 0.01 K/uL RDW Standard Deviation 38.0 fL RDW Coefficient of Variation 12.5 % Immature Granulocyte % (Auto) 0.1 % Immature Granulocyte # (Auto) 0.01 K/uL Sodium Level 140 mmol/L 141 mmol/L Potassium Level 3.5 mmol/L 4.3 mmol/L Chloride Level 107 mmol/L 112 mmol/L Carbon Dioxide Level 25 mmol/L 19 mmol/L Anion Gap 8.0 mmol/L 10.0 mmol/L Blood Urea Nitrogen 11 mg/dl 14 mg/dl Creatinine 0.63 mg/dl 0.92 mg/dl Est Creatinine Clear Calc Drug Dose 69.2 ml/min 47.4 ml/min Estimated GFR () 110.6 76.8 Estimated GFR (Non- 95.5 66.3 BUN/Creatinine Ratio 17.4 15.4 Random Glucose 100 mg/dl 84 mg/dl Osmolality 286 mOsm/kg Calcium Level 8.8 mg/dl 8.8 mg/dl Magnesium Level 2.3 mg/dl Assessment and Plan This is a 61 year old female with a PMH of CVA, HTN, HLD, hx. of uterine CA s/p surgery/chemo presents after laser peripheral iridotomy and subsequent R eye pain Acute Ocular Pressure Elevation s/p R eye laser iridotomy pressure remained elevated with topical drops given IV mannitol did well overnight R eye pain/pressure improved had some left sided headache today, improved with Tylenol spoke with Dr. Villarreal, ophthalmology, plan is for discharge, outpatient pressure check Hx. of CVA continue Plavix + statin HTN continue Toprol, Verapamil, Cozaar DVT ppx SCDs FULL CODE
[2017-01-11 15:16] VITALS: BP 105/66; PULSE 53; TEMP 36.5; O2SAT 97
[2017-01-11] MEDS ORDERED: ATORVASTATIN 20 MG TAB PO SCH (21:00)
[2017-03-08] MEDS ORDERED: VANC5CAP PO (12:52)
== END 2017-01-11 15:35 | disposition home or self-care (01) | DRG 125 ==
LOC: C.EDB 14:28 → C.MS4W 20:34 → ENRESERV 20:44
PROVIDERS: ADMIT Family Medicine; ATTEND Family Medicine
DX: H40.051 Ocular hypertension, right eye (principal); I10 Essential (primary) hypertension; E78.5 Hyperlipidemia, unspecified; Z79.899 Other long term (current) drug therapy; Z86.73 Personal history of transient ischemic attack (TIA), and cerebral infarction without residual deficits; Z98.890 Other specified postprocedural states

== ENCOUNTER 2017-03-05 09:47 | Emergency (ER) | payer OTHER ==
[~2017-03-05] VITALS: Ht 149.9 cm; Wt 54.1 kg
[~2017-03-05 09:47] MED LIST changes: -ASPCH81X PO; -ATV/1 PO; -BNT10 PO; +CALCTAB23 PO; -CZR50 PO; +LOSA100T65 PO; +LPT/20 PO; -LPT10 PO; -MTR500 PO; -PRLSR20 PO; +VERA120T65 PO; -VERA1TAB53 PO; +[UNRECOGNIZED DRUG - CODE] OP
[2017-03-05 09:54] VITALS: TEMP 36.8; Ht 149.9 cm; Wt 54.1 kg
[2017-03-05] MEDS ORDERED: ONDANSETRON INJ 2 MG/ML 2 ML VIAL IV STA (10:07)
[2017-03-05] MEDS ORDERED: SODIUM CHLORIDE 0.9% 1000ML 1,000 ML IV STA (10:07)
[2017-03-05] MEDS ORDERED: MoRPHine SULFATE 4 MG/ML 1 ML CARP\\VIAL IV STA (10:07)
--- NOTE | 2017-03-05 10:10 | EMERGENCY ROOM VISIT NOTE ---
History Report prepared by Alfredo: Savana Shirley Under the Supervision of: Dr. French Suggs M.D. First contact with patient: 10:02 Chief Complaint: GI ASSESSMENT Stated Complaint: UPPER BACK PAIN, EPIGASTRIC PAIN S/P EGD- REFERRED Nursing Triage Summary: Pt sent by Dr. Camacho for eval of epigastric and back pain/burning. Nausea. Cold sweats. Bloating in abdomen. Pt had an EGD on 03/01/17, has report with her. History of Present Illness The patient is a 61 year old female who presents to the Emergency Room with complaints of a GI assessment. The patient reports having an endoscopy done on March 01. The patient complains of epigastric abdominal pain, which she rates at a 7/10. She has also had upper back pain, nausea, chills, and a headache. She reports taking Tylenol for her symptoms. Source of History: patient Onset: 4 days ago Position: abdomen (epigastric) Symptom Intensity: rated at a 7/10 Quality: other (GI assessment ) Associated Symptoms: + chills, + headache, + nausea, + back pain (upper) Review of Systems See HPI for pertinent positives & negatives. A total of 10 systems reviewed and were otherwise negative. Past Medical & Surgical Medical Problems: (1) Aortic valve sclerosis (2) C. difficile colitis (3) Cervical dysplasia (4) Cervical spinal stenosis (5) CVA (cerebral vascular accident) (6) Dyslipidemia (7) History of uterine cancer (8) Hypertension Nos (9) S/p breast lesion excision (10) Small bowel obstruction (11) TIA (transient ischemic attack) Surgical Problems: (1) Status post hysterectomy Family History CVA BROTHER (at age 48) Cancer MOTHER (unknown what type) Early CAD BROTHER (passed at age 53 from [place]) Social History Smoking Status: Never Smoker Alcohol Use: none Drug Use: none Housing Status: lives with family Current/Historical Medications Scheduled Atorvastatin (Atorvastatin Calcium), 20 MG PO HS Clopidogrel Bisulfate (Clopidogrel), 75 MG PO DAILY Losartan Potassium (Cozaar), 100 MG PO DAILY Metoprolol Succinate (Metoprolol Succinate ER), 100 MG PO DAILY Omeprazole (Prilosec), 20 MG PO DAILY Verapamil HCl (Verapamil HCl ER), 120 MG PO DAILY Scheduled PRN Acetaminophen (Tylenol Extra Strength), 1,000 MG PO Q8 PRN for Pain Allergies Coded Allergies: Cephalexin (Unverified Allergy, Severe, TONGUE SWELLING, 03/05/17) Ethanol (Verified Allergy, Severe, ANAPHYLAXIS, 03/05/17) Paclitaxel (Verified Allergy, Severe, ANAPHYLAXIS, 03/05/17) Polyoxyethylated [place] Oil (Verified Allergy, Severe, ANAPHYLAXIS, ) Physical Exam Vital Signs Date Time Temp Pulse Resp B/P (MAP) Pulse Ox O2 Delivery O2 Flow Rate FiO2 03/05/17 12:23 87 18 179/88 97 Room Air 03/05/17 11:36 63 18 170/84 92 Room Air 03/05/17 09:54 36.8 60 18 154/79 97 Room Air Physical Exam GENERAL: Patient is uncomfortable appearing and in mild distress. HEENT: No acute trauma, normocephalic atraumatic, mucous membranes moist, no nasal congestion, no scleral icterus. NECK: No stridor, no adenopathy, no meningismus, trachea is midline. LUNGS: No dyspnea. Clear to auscultation and equal bilaterally. No wheeze, no rhonchi. HEART: Regular rate and rhythm. No murmurs, rubs, gallops appreciated. ABDOMEN: Soft, epigastric tenderness to palpation, bowel sounds positive, no masses appreciated, no peritonitis. BACK: No midline tenderness, no CVA tenderness EXTREMITIES: Normal motion all extremities, no cyanosis, no edema. NEUROLOGIC: Alert and oriented, no acute motor or sensory deficits, no focal weakness, cranial nerves grossly intact. SKIN: No rash, no jaundice, no diaphoresis. Medical Decision & Procedures ER Provider Diagnostic Interpretation: CT results as stated below per interpretation by me and the radiologist: ABDOMEN AND PELVIS CT WITH IV CONTRAST CT DOSE: 268.69 mGy.cm HISTORY: diffuse abdominal pain post endoscopy TECHNIQUE: Multiaxial CT images of the abdomen and pelvis were performed following the use of intravenous contrast. A dose lowering technique was utilized adhering to the principles of ALARA. COMPARISON STUDY: Abdomen and pelvis CT 03/05/2014. FINDINGS: Mild dependent changes seen within the lung bases. No pneumoperitoneum. No pneumatosis. No suspicious lytic or blastic osseous lesions. Coronary artery calcifications. Mild gastric wall thickening is likely due to underdistention. There is no surrounding inflammatory change. There are 3 diverticula at the second and third portion of the duodenum with the largest measuring 2.5 cm. Stable 6 mm hypodense lesion within the right hepatic lobe. This likely represents a cyst. The gallbladder, pancreas, spleen, adrenal glands, and kidneys are unremarkable. No hydronephrosis. No retroperitoneal lymphadenopathy. The bladder is not well-distended but appears within normal limits. No pelvic free fluid. No bowel wall thickening or obstruction. A few colonic diverticula. Normal appendix. IMPRESSION: 1. No pneumoperitoneum. No pneumatosis. 2. No bowel wall thickening or obstruction. Questionable thickening within the gastric wall is likely due to underdistention. 3. Duodenal and colonic diverticula. Electronically signed by: Rakan Rodriguez M.D. 03/05/2017 11:18 AM Dictated Date/Time: 03/05/2017 11:09 AM X ray results are stated below per my interpretation and the radiologist's interpretation. CHEST ONE VIEW PORTABLE HISTORY: epigastric pain post endoscopy, anesthesia COMPARISON: Chest 05/03/2014. FINDINGS: The lungs are clear. Cardiac silhouette is normal in size. No pleural effusions. No pneumothorax. No pneumomediastinum. IMPRESSION: No acute process. Electronically signed by: Rakan Rodriguez M.D. 03/05/2017 12:09 PM Dictated Date/Time: 03/05/2017 12:08 PM Laboratory Results 03/05/17 10:35 Red Blood Count 4.72, Mean Corpuscular Volume 86.4, Mean Corpuscular Hemoglobin 29.2, Mean Corpuscular Hemoglobin Concent 33.8, Mean Platelet Volume 8.9, Neutrophils (%) (Auto) 58.5, Lymphocytes (%) (Auto) 33.8, Monocytes (%) (Auto) 5.7, Eosinophils (%) (Auto) 1.6, Basophils (%) (Auto) 0.2, Neutrophils # (Auto) 3.56, Lymphocytes # (Auto) 2.06, Monocytes # (Auto) 0.35, Eosinophils # (Auto) 0.10, Basophils # (Auto) 0.01 03/05/17 10:35 Test 03/05/17 10:35 03/05/17 10:43 03/05/17 10:45 White Blood Count 6.09 K/uL (4.8-10.8) Red Blood Count 4.72 M/uL (4.2-5.4) Hemoglobin 13.8 g/dL (12.0-16.0) Hematocrit 40.8 % (37-47) Mean Corpuscular Volume 86.4 fL (80-100) Mean Corpuscular Hemoglobin 29.2 pg (25-34) Mean Corpuscular Hemoglobin Concent 33.8 g/dl (32-36) Platelet Count 302 K/uL (130-400) Mean Platelet Volume 8.9 fL (7.4-10.4) Neutrophils (%) (Auto) 58.5 % Lymphocytes (%) (Auto) 33.8 % Monocytes (%) (Auto) 5.7 % Eosinophils (%) (Auto) 1.6 % Basophils (%) (Auto) 0.2 % Neutrophils # (Auto) 3.56 K/uL (1.4-6.5) Lymphocytes # (Auto) 2.06 K/uL (1.2-3.4) Monocytes # (Auto) 0.35 K/uL (0.11-0.59) Eosinophils # (Auto) 0.10 K/uL (0-0.5) Basophils # (Auto) 0.01 K/uL (0-0.2) RDW Standard Deviation 41.0 fL (36.4-46.3) RDW Coefficient of Variation 12.9 % (11.5-14.5) Immature Granulocyte % (Auto) 0.2 % Immature Granulocyte # (Auto) 0.01 K/uL (0.00-0.02) Est Creatinine Clear Calc Drug Dose 51.5 ml/min Estimated GFR () 85.7 Estimated GFR (Non- 74.0 BUN/Creatinine Ratio 15.2 (10-20) Calcium Level 9.1 mg/dl (8.5-10.1) Total Bilirubin 0.4 mg/dl (0.2-1) Direct Bilirubin < 0.1 mg/dl (0-0.2) Aspartate Amino Transf (AST/SGOT) 16 U/L (15-37) Alanine Aminotransferase (ALT/SGPT) 23 U/L (12-78) Alkaline Phosphatase 81 U/L (45-117) Troponin I < 0.015 ng/ml (0-0.045) Total Protein 7.7 gm/dl (6.4-8.2) Albumin 3.8 gm/dl (3.4-5.0) Lipase 140 U/L (73-393) Bedside Hemoglobin 13.9 g/dl (12.0-16.0) Bedside Hematocrit 41 % (37-47) Bedside Sodium 142 mEq/L (135-144) Bedside Potassium 3.8 mEq/L (3.3-5.0) Bedside Chloride 103 mEq/L (101-112) Bedside Total CO2 27 mEq/l (24-31) Anion Gap 17.0 mmol/L (16-25) Bedside Blood Urea Nitrogen 12 mg/dl (7-18) Bedside Creatinine 0.8 mg/dl (0.6-1.3) Bedside Glucose (other) 89 mg/dl (70-99) Bedside Ionized Calcium (David) 1.23 mmol/l (1.12-1.32) Urine Color YELLOW Urine Appearance CLEAR (CLEAR) Urine pH 6.5 (4.5-7.5) Urine Specific [place] 1.013 (1.000-1.030) Urine Protein NEG (NEG) Urine Glucose (UA) NEG (NEG) Urine Ketones NEG (NEG) Urine Occult Blood NEG (NEG) Urine Nitrite NEG (NEG) Urine Bilirubin NEG (NEG) Urine Urobilinogen NEG (NEG) Urine Leukocyte Esterase TRACE (NEG) Urine WBC (Auto) 1-5 /hpf (0-5) Urine RBC (Auto) 0-4 /hpf (0-4) Urine Hyaline Casts (Auto) 1-5 /lpf (0-5) Urine Epithelial Cells (Auto) 10-20 /lpf (0-5) Urine Bacteria (Auto) NEG (NEG) Laboratory results as reviewed by me. Medications Administered Medications (Trade) Dose Ordered Sig/Efren Route Start Time Stop Time Status Last Admin Dose Admin Morphine Sulfate (MoRPHine SULFATE INJ) 4 mg NOW STAT IV 03/05/17 10:07 03/05/17 10:09 DC 03/05/17 10:53 4 MG Ondansetron HCl (Zofran Inj) 4 mg NOW STAT IV 03/05/17 10:07 03/05/17 10:09 DC 03/05/17 10:53 4 MG Sodium Chloride 1,000 ml @ 999 mls/hr Q1H1M STAT IV 03/05/17 10:07 03/05/17 11:07 DC 03/05/17 10:52 999 MLS/HR Miscellaneous Medication (Gi Cocktail) 24 ml NOW STAT PO 03/05/17 11:47 03/05/17 11:49 DC 03/05/17 11:47 24 ML ECG Indication: abdominal pain Rate (beats per minute): 51 Rhythm: sinus bradycardia Findings: no acute ischemic change, no ectopy ED Course 1003: The patient was evaluated in room A10. A complete history and physical exam was performed. 1007: Ordered Sodium Chloride 1,000 ml @ 999 mls/hr IV, Ondansetron HCl 4 mg IV , Morphine Sulfate 4 mg IV. 1140: The patient is feeling better. I discussed further treatment and she is willing to try a GI cocktail, and she would like a chest X-ray done. The patient also stated that her blood pressure was normal this morning. 1147: Ordered GI Cocktail PO. 1230: Reevaluated the patient. Discussed results and discharge instructions: She verbalized understanding and agreement. The patient is ready for discharge. Medical Decision Differential: Cholecystitis, Gallbladder disfunction, Hepatic Disfunction, Gastritis/PUD, Pancreatitis, ACS, Aortic Pathology, amongst other pathologies entertained. 61 yr old female with epigastric pain sent over by PCP for further evaluation 4 days post EGD. Exam benign though she clearly is a bit anxious. She has multiple different complaints from weakness, headache, back pain, (all of which are mild), but with completely benign labs, normal CT abdo, benign exam and just HTN on vitals I feel that this most likely is post EGD/Anesthesia. Suggested increase her Omeprazole to twice daily for next week, rest, keep well hydrated and follow up with PCP. We discussed at length symptoms requiring RTED. Medication Reconcilliation Current Medication List: was personally reviewed by me Blood Pressure Screening Patient's blood pressure: Elevated blood pressure Blood pressure disposition: Referred to PCP Impression Primary Impression: Status post endoscopy Additional Impression: Gastritis Scribe Attestation The scribe's documentation has been prepared under my direction and personally reviewed by me in its entirety. I confirm that the note above accurately reflects all work, treatment, procedures, and medical decision making performed by me. Departure Information Dispostion Home / Self-Care Patient Instructions My [facility] Additional Instructions Please follow up with your PCP or GI Specialist. Start taking your Omeprazole twice daily over the next week. Return if worsening pain, vomiting, difficulty breathing, passing out or other concerns. You have received a narcotic pain medication. Do not drive, drink alcohol, perform dangerous activities, nor make important decisions for the next 6 hours. You have been examined and treated today on an emergency basis only. This is not a substitute for, or an effort to provide, complete comprehensive medical care. It is impossible to recognize and treat all injuries or illnesses in a single emergency department visit. It is therefore important that you follow up closely with your Primary Physician. Call as soon as possible for an appointment so you can review all labs, imaging and other testing that you had. Return to Emergency Department, call 911 or seek immediate medical attention if you feel your symptoms are worsening. Problem Qualifiers
[2017-03-05] MEDS ORDERED: OPTIRAY 320 IV PRN (10:30)
[2017-03-05] MEDS ORDERED: PRLSR20 PO (10:34)
[2017-03-05 10:59] LABS: ISTAT CREATININE 0.8 mg/dl (0.6-1.3); ISTAT HEMOGLOBIN 13.9 g/dl (12.0-16.0); ISTAT IONIZED CALCIUM 1.23 mmol/l (1.12-1.32)
[2017-03-05 11:03] LABS: BASO % 0.2 %; BASO ABS # 0.01 K/uL (0-0.2); COMPLETE YES; EOS % 1.6 %; HEMATOCRIT 40.8 % (37-47); IG% 0.2 %; LYMPH % 33.8 %; LYMPH ABS # 2.06 K/uL (1.2-3.4); MEAN CELL VOLUME 86.4 fL (80-100); MEAN CORPUSCULAR HEMOGLOBIN 29.2 pg (25-34); MEAN CORPUSCULAR HGB CONC 33.8 g/dl (32-36); MEAN PLATELET VOLUME 8.9 fL (7.4-10.4); MONO % 5.7 %; NEUT % 58.5 %; PLATELET COUNT 302 K/uL (130-400); RED BLOOD COUNT 4.72 M/uL (4.2-5.4); WHITE BLOOD COUNT 6.09 K/uL (4.8-10.8)
--- NOTE | 2017-03-05 11:19 | DIAGNOSTIC IMAGING REPORT ---
ABDOMEN AND PELVIS CT WITH IV CONTRAST CT DOSE: 268.69 mGy.cm HISTORY: diffuse abdominal pain post endoscopy TECHNIQUE: Multiaxial CT images of the abdomen and pelvis were performed following the use of intravenous contrast. A dose lowering technique was utilized adhering to the principles of ALARA. COMPARISON STUDY: Abdomen and pelvis CT 03/05/2014. FINDINGS: Mild dependent changes seen within the lung bases. No pneumoperitoneum. No pneumatosis. No suspicious lytic or blastic osseous lesions. Coronary artery calcifications. Mild gastric wall thickening is likely due to underdistention. There is no surrounding inflammatory change. There are 3 diverticula at the second and third portion of the duodenum with the largest measuring 2.5 cm. Stable 6 mm hypodense lesion within the right hepatic lobe. This likely represents a cyst. The gallbladder, pancreas, spleen, adrenal glands, and kidneys are unremarkable. No hydronephrosis. No retroperitoneal lymphadenopathy. The bladder is not well-distended but appears within normal limits. No pelvic free fluid. No bowel wall thickening or obstruction. A few colonic diverticula. Normal appendix. IMPRESSION: 1. No pneumoperitoneum. No pneumatosis. 2. No bowel wall thickening or obstruction. Questionable thickening within the gastric wall is likely due to underdistention. 3. Duodenal and colonic diverticula. Electronically signed by: Rakan Rodriguez M.D. 03/05/2017 11:18 AM Dictated Date/Time: 03/05/2017 11:09 AM
[2017-03-05 11:21] LABS: ALT/SGPT 23 U/L (12-78); BLOOD UREA NITROGEN 13 mg/dl (7-18); BUN/CREATININE RATIO 15.2 (10-20); CALCIUM 9.1 mg/dl (8.5-10.1); CARBON DIOXIDE 27 mmol/L (21-32); CHLORIDE 108 mmol/L (98-107); CREATININE 0.84 mg/dl (0.60-1.20); GLUCOSE 87 mg/dl (70-99); POTASSIUM 3.7 mmol/L (3.5-5.1); SODIUM 142 mmol/L (136-145)
[2017-03-05 11:26] LABS: ALKALINE PHOSPHATASE 81 U/L (45-117); AST/SGOT 16 U/L (15-37)
[2017-03-05 11:31] LABS: URINE APPEARANCE CLEAR (CLEAR); URINE BILIRUBIN NEG (NEG); URINE COLOR YELLOW; URINE NITRITE NEG (NEG); URINE PH 6.5 (4.5-7.5); URINE SPECIFIC GRAVITY 1.013 (1.000-1.030); UROBILINOGEN NEG (NEG); ZZUR CULT IF INDIC CLEAN CATCH NO
[2017-03-05 11:34] LABS: MANUAL MICROSCOPIC REQUIRED? NO; REVIEW REQ? NO
[2017-03-05] MEDS ORDERED: GI COCKTAIL PO STA (11:47)
[2017-03-05] MEDS ORDERED: ALUMINUM/MAGNESIUM SUSP 30 ML UDC ONE (11:55)
[2017-03-05] MEDS ORDERED: LIDOCAINE HCL 2% VISC SOLN 20 ML UDC ONE (11:55)
--- NOTE | 2017-03-05 12:10 | DIAGNOSTIC IMAGING REPORT ---
CHEST ONE VIEW PORTABLE HISTORY: epigastric pain post endoscopy, anesthesia COMPARISON: Chest 05/03/2014. FINDINGS: The lungs are clear. Cardiac silhouette is normal in size. No pleural effusions. No pneumothorax. No pneumomediastinum. IMPRESSION: No acute process. Electronically signed by: Rakan Rodriguez M.D. 03/05/2017 12:09 PM Dictated Date/Time: 03/05/2017 12:08 PM
[2017-03-05 12:23] VITALS: BP 179/88; PULSE 87; O2SAT 97
[2017-03-08] MEDS ORDERED: VANC5CAP PO (12:52)
== END 2017-03-05 12:36 | disposition home or self-care (01) ==
LOC: C.EDB 09:47 → C.EDA 12:36
DX: K29.70 Gastritis, unspecified, without bleeding (principal); Z98.890 Other specified postprocedural states; E78.5 Hyperlipidemia, unspecified; I10 Essential (primary) hypertension; Z85.42 Personal history of malignant neoplasm of other parts of uterus; Z86.73 Personal history of transient ischemic attack (TIA), and cerebral infarction without residual deficits; Z90.710 Acquired absence of both cervix and uterus; Z82.3 Family history of stroke; Z82.49 Family history of ischemic heart disease and other diseases of the circulatory system; Z79.02 Long term (current) use of antithrombotics/antiplatelets; Z79.899 Other long term (current) drug therapy

== ENCOUNTER 2017-03-05 18:26 | Observation (INO) | payer OTHER ==
[~2017-03-05] VITALS: Ht 144.8 cm; Wt 55.2 kg
[~2017-03-05 18:26] MED LIST changes: +PRLSR20 PO
[2017-03-05] MEDS ORDERED: SODIUM CHLORIDE 0.9% 1000ML 500 ML IV STA (18:42)
[2017-03-05] MEDS ORDERED: NITROGLYCERIN OINT 2% 1GM PACKET EXT STA (18:42)
--- NOTE | 2017-03-05 19:02 | EMERGENCY ROOM VISIT NOTE ---
History Report prepared by Gianaibe: Miley Sutherland Under the Supervision of: Dr. Sukhi Lopez M.D. First contact with patient: 18:38 Chief Complaint: CARDIAC ASSESSMENT Stated Complaint: HEADACHE,JAWPAIN,NAUSEA, HEART ATTACK SYMPTOMS Nursing Triage Summary: pt c/o back and chest pain WAGGONER and vomitting, dizziness and weakness that started a couple hours ago "i have the symptoms of a heart attack" no pain right now but states that she has anxiety took BP meds 1330 was here this morning in the ED History of Present Illness The patient is a 61 year old female who presents to the Emergency Room with complaints of persistent cardiac symptoms for the past 4 hours. She complains of "squeezing" chest pain, jaw pain, diaphoresis, vomiting, dizziness and weakness that started "a couple of hours ago". She rates her pain as a 5/10. She denies any difficulty breathing or shortness of breath. The patient had an endoscopy 4 days ago and was seen here in the ED this morning for back pain and nausea. Later today her symptoms worsened, and she developed chest pain, jaw pain, diaphoresis and vomiting, so she came back to the ED. According to her records, the endoscopy showed mild gastritis. The patient takes daily Plavix for a history of a previous CVA. She also admits to a history of hypertension and hyperlipidemia. She last took her blood pressure medication at 1530 today. 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 A total of 10 systems reviewed and were otherwise negative. Past Medical & Surgical Medical Problems: (1) Aortic valve sclerosis (2) Atypical chest pain (3) C. difficile colitis (4) Cervical dysplasia (5) Cervical spinal stenosis (6) CVA (cerebral vascular accident) (7) Dyslipidemia (8) Gastritis and duodenitis (9) History of uterine cancer (10) Hypertension (11) Hypertension Nos (12) S/p breast lesion excision (13) Small bowel obstruction (14) TIA (transient ischemic attack) Surgical Problems: (1) Status post hysterectomy Family History CVA BROTHER (at age 48) Cancer MOTHER (unknown what type) Early CAD BROTHER (passed at age 55 from [place]) Social History Smoking Status: Never Smoker Alcohol Use: none Drug Use: none Marital Status: Housing Status: lives with family Occupation Status: retired Current/Historical Medications Scheduled Atorvastatin (Atorvastatin Calcium), 20 MG PO HS Clopidogrel Bisulfate (Clopidogrel), 75 MG PO DAILY Losartan Potassium (Cozaar), 100 MG PO DAILY Metoprolol Succinate (Metoprolol Succinate ER), 100 MG PO DAILY Omeprazole (Prilosec), 20 MG PO DAILY Verapamil HCl (Verapamil HCl ER), 120 MG PO DAILY Scheduled PRN Acetaminophen (Tylenol Extra Strength), 1,000 MG PO Q8 PRN for Pain Allergies Coded Allergies: Cephalexin (Unverified Allergy, Severe, TONGUE SWELLING, 03/05/17) Ethanol (Verified Allergy, Severe, ANAPHYLAXIS, 03/05/17) Paclitaxel (Verified Allergy, Severe, ANAPHYLAXIS, 03/05/17) Polyoxyethylated [place] Oil (Verified Allergy, Severe, ANAPHYLAXIS, ) Physical Exam Vital Signs Date Time Temp Pulse Resp B/P (MAP) Pulse Ox O2 Delivery O2 Flow Rate FiO2 03/05/17 20:28 78 18 147/71 94 Room Air 03/05/17 20:07 94 03/05/17 19:59 77 18 172/79 96 Room Air 03/05/17 19:48 95 Room Air 03/05/17 18:32 36.6 77 20 189/108 95 Physical Exam GENERAL: Patient is in no acute distress. HEENT: No acute trauma, normocephalic atraumatic, mucous membranes moist, no nasal congestion, no scleral icterus. NECK: No stridor, no adenopathy, no meningismus, trachea is midline. LUNGS: Clear to auscultation bilaterally, no wheeze, no rhonchi, breath sounds equal. HEART: Without murmurs gallops or rubs, regular rate and rhythm. ABDOMEN: Soft, nontender, bowel sounds positive, no hernias, no peritonitis. EXTREMITIES: No cyanosis or edema, full range of motion of all the joints without pain or difficulty, no signs for acute trauma. NEUROLOGIC: Oriented x 3, no acute motor or sensory deficits, no focal weakness. SKIN: No rash, no jaundice, no diaphoresis. Medical Decision & Procedures ER Provider Diagnostic Interpretation: Radiology results as stated below per my review and radiologist interpretation: CHEST ONE VIEW PORTABLE CLINICAL HISTORY: Chest pain. COMPARISON STUDY: Chest radiograph March 05, 2017 11:53 AM. FINDINGS: Lung volumes are normal. There is no pneumothorax or pleural effusion. Widening of the right paratracheal stripe is unchanged. Cardiac size is normal. There is no evidence of pulmonary edema. Minimal bibasilar opacities favor atelectasis. There is no consolidation to suggest pneumonia. IMPRESSION: No acute cardiopulmonary findings. Electronically signed by: Melo Moore M.D. 03/05/2017 7:20 PM Laboratory Results 03/05/17 19:27 03/05/17 19:27 Test 03/05/17 19:27 Red Blood Count 4.54 M/uL (4.2-5.4) Mean Corpuscular Volume 85.2 fL (80-100) Mean Corpuscular Hemoglobin 28.9 pg (25-34) Mean Corpuscular Hemoglobin Concent 33.9 g/dl (32-36) RDW Standard Deviation 39.5 fL (36.4-46.3) RDW Coefficient of Variation 12.7 % (11.5-14.5) Mean Platelet Volume 8.7 fL (7.4-10.4) Prothrombin Time 10.4 SECONDS (9.0-12.0) Prothromb Time International Ratio 1.0 (0.9-1.1) Activated Partial Thromboplast Time 27.1 SECONDS (21.0-31.0) Partial Thromboplastin Ratio 1.0 Anion Gap 8.0 mmol/L (3-11) Est Creatinine Clear Calc Drug Dose 61.7 ml/min Estimated GFR () 109.0 Estimated GFR (Non- 94.0 BUN/Creatinine Ratio 16.2 (10-20) Calcium Level 8.5 mg/dl (8.5-10.1) Total Bilirubin 0.4 mg/dl (0.2-1) Aspartate Amino Transf (AST/SGOT) 17 U/L (15-37) Alanine Aminotransferase (ALT/SGPT) 20 U/L (12-78) Alkaline Phosphatase 76 U/L (45-117) Total Creatine Kinase 71 U/L (26-192) Creatine Kinase MB 0.5 ng/ml (0.5-3.6) Creatine Kinase MB Ratio 0.7 (0-3.0) Troponin I < 0.015 ng/ml (0-0.045) Total Protein 7.2 gm/dl (6.4-8.2) Albumin 3.5 gm/dl (3.4-5.0) Globulin 3.7 gm/dl (2.5-4.0) Albumin/Globulin Ratio 0.9 (0.9-2) Lipase 108 U/L (73-393) Laboratory results reviewed by me. Medications Administered Medications (Trade) Dose Ordered Sig/Efren Route Start Time Stop Time Status Last Admin Dose Admin Sodium Chloride 500 ml @ 999 mls/hr Q31M STAT IV 03/05/17 18:42 03/05/17 19:12 DC 03/05/17 19:40 999 MLS/HR Nitroglycerin (Nitroglycerin 2% Oint) 1 inch NOW STAT EXT 03/05/17 18:42 03/05/17 18:45 DC 03/05/17 19:41 1 INCH Ondansetron HCl (Zofran Inj) 4 mg NOW STAT IV 03/05/17 19:32 03/05/17 19:34 DC 03/05/17 19:41 4 MG Promethazine HCl 6.25 mg/Sodium Chloride 50.25 ml @ 204 mls/hr NOW STAT IV 03/05/17 19:32 03/05/17 19:46 DC 03/05/17 19:47 204 MLS/HR ECG Indication: chest pain Rate (beats per minute): 80 Rhythm: normal sinus Findings: no acute ischemic change, no ectopy Change: no significant change (No change from previous EKG performed earlier today, 03/05/17) ED Course 1838: The patient was evaluated in room C4. A complete history and physical exam was performed. 1841: Nitroglycerin 1 inch EXT, NSS 500 ml @ 999 mls/hr IV. 1931: Promethazine HCl 6.25 mg/NSS 50.25 ml @ 204 mls/hr IV, Zofran 4 mg IV. 2031: I discussed the patients case with Dr. Wolff, [facility] Hospitalist. The patient will be further evaluated. 2034: I reevaluated the patient. She is resting comfortably. I discussed my recommendation that she remain in the hospital for further evaluation and management and she verbalized complete understanding and agreement. Medical Decision The differential diagnoses considered include angina or [place], cardiac ischemia, reflux or gastritis, viral illness, infection, dehydration, electrolyte imbalance, aortic dissection or PE. There is no leukocytosis or concerning anemia. No significant electrolyte abnormality, kidney failure or hepatitis. There is no pancreatitis. Chest x- ray does not show pneumonia, mediastinal widening or pneumothorax. There is no free air. EKG shows a normal sinus rhythm, no acute ischemia. Cardiac enzyme testing times one is not consistent with acute cardiac injury. The patient presents with chest pressure, jaw pain, sweating, nausea and shortness of breath. Her history was concerning for cardiac ischemia/angina. She does carry a history of high blood pressure and high cholesterol. The patient received nitro paste, IV Zofran, IV Phenergan and IV saline, she is feeling improved. She is currently taking Plavix as an antiplatelet medication. The patient presents with discomfort that I do believe requires a further cardiac workup. I did speak with the patient and case management. The on-call hospitalist was consulted. Medication Reconcilliation Current Medication List: was personally reviewed by me Blood Pressure Screening Patient's blood pressure: Elevated blood pressure Blood pressure disposition: Elevated BP felt to be situational Consults Time Called: 2024 Consulting Physician: Radha Anderson Hospitalist Returned Call: 2031 I discussed the patients [facility] The patient will be further evaluated. Impression Primary Impression: Precordial chest pain Additional Impressions: Vomiting Weakness Scribe Attestation The scribe's documentation has been prepared under my direction and personally reviewed by me in its entirety. I confirm that the note above accurately reflects all work, treatment, procedures, and medical decision making performed by me. Departure Information Dispostion Being Evaluated By Hospitalist Referrals June Lantigua D.O. (PCP) Patient Instructions My [facility] Problem Qualifiers
--- NOTE | 2017-03-05 19:22 | DIAGNOSTIC IMAGING REPORT ---
CHEST ONE VIEW PORTABLE CLINICAL HISTORY: Chest pain. COMPARISON STUDY: Chest radiograph March 05, 2017 11:53 AM. FINDINGS: Lung volumes are normal. There is no pneumothorax or pleural effusion. Widening of the right paratracheal stripe is unchanged. Cardiac size is normal. There is no evidence of pulmonary edema. Minimal bibasilar opacities favor atelectasis. There is no consolidation to suggest pneumonia. IMPRESSION: No acute cardiopulmonary findings. Electronically signed by: Melo Moore M.D. 03/05/2017 7:20 PM Dictated Date/Time: 03/05/2017 7:19 PM
[2017-03-05] MEDS ORDERED: PROMETHAZINE HCL INJ 6.25 MG in SODIUM CHLORIDE 0.9% 50ML 50 ML IV STA (19:32)
[2017-03-05] MEDS ORDERED: ONDANSETRON INJ 2 MG/ML 2 ML VIAL IV STA (19:32)
[2017-03-05 19:36] LABS: HEMATOCRIT 38.7 % (37-47); MEAN CELL VOLUME 85.2 fL (80-100); MEAN CORPUSCULAR HEMOGLOBIN 28.9 pg (25-34); MEAN CORPUSCULAR HGB CONC 33.9 g/dl (32-36); MEAN PLATELET VOLUME 8.7 fL (7.4-10.4); PLATELET COUNT 285 K/uL (130-400); RED BLOOD COUNT 4.54 M/uL (4.2-5.4); WHITE BLOOD COUNT 6.85 K/uL (4.8-10.8)
[2017-03-05 19:48] LABS: PROTHROMBIN TIME (PATIENT) 10.4 SECONDS (9.0-12.0)
[2017-03-05 19:53] LABS: ALT/SGPT 20 U/L (12-78); BLOOD UREA NITROGEN 11 mg/dl (7-18); BUN/CREATININE RATIO 16.2 (10-20); CALCIUM 8.5 mg/dl (8.5-10.1); CARBON DIOXIDE 25 mmol/L (21-32); CHLORIDE 106 mmol/L (98-107); CREATININE 0.66 mg/dl (0.60-1.20); GLUCOSE 95 mg/dl (70-99); POTASSIUM 3.5 mmol/L (3.5-5.1); SODIUM 139 mmol/L (136-145)
[2017-03-05 19:58] LABS: ALB/GLOB RATIO 0.9 (0.9-2); ALKALINE PHOSPHATASE 76 U/L (45-117); AST/SGOT 17 U/L (15-37); CKMB/CK RATIO 0.7 (0-3.0)
[2017-03-05] MEDS ORDERED: ACETAMINOPHEN 325 MG TAB PO PRN (21:00)
[2017-03-05] MEDS ORDERED: IV FLUIDS COMPLETED PRN (21:30)
[2017-03-05 23:14] VITALS: BP 141/71; PULSE 58; TEMP 36.6; O2SAT 97; Ht 144.8 cm; Wt 55.2 kg
[2017-03-05] MEDS: NSS + 20MEQ KCL 1000ML 1,000 ML IV SCH (23:43)
[2017-03-05] MEDS: ACETAMINOPHEN 500 MG TAB PO PRN (23:44)
[2017-03-05 23:59] VITALS: O2SAT 97
[2017-03-06] VITALS (7 sets, daily range): BP systolic 127–183; BP diastolic 64–82; PULSE 53–66; TEMP 36.7–36.8; O2SAT 93–99
--- NOTE | 2017-03-06 02:38 | HISTORY & PHYSICAL EXAMINATION ---
DATE OF ADMISSION: 03/05/2017 PRIMARY CARE PROVIDER: Dr. June Lantigua. CHIEF COMPLAINT: Epigastric lower center chest pain, jaw pain that has been going on since this morning. HISTORY OF PRESENT COMPLAINT: She is a 61-year-old female with significant past medical history of hypertensive heart disease without CHF, history of spina stenosis, cerebrovascular disease, hyperlipidemia, history of squamous cell carcinoma of the uterus, old lacunar infarct without late effect, aortic valve mass, dizziness and hypertension. Apparently underwent EGD on 03/01/2017 as an outpatient for globus hystericus type of picture. The endoscopy did show erosive gastropathy and she has been on omeprazole for that. Since , she was having some pain in the epigastrium with some nausea. It has been ongoing. She called the doctor's office and had an appointment to see the doctor today. She went to see the doctor today, and in the meantime, she complained to have pain involving more or less all over the body and also generalized weakness associated with nausea and she did have pain in the lower chest and also jaw area. She was sent into the Emergency Room in the morning. In the ER, she underwent a CAT scan of the abdomen and pelvis and that did not show any significant findings, specifically there was no pneumoperitoneum and there was questionable gastric wall thickening but nothing else. She was sent home. She is back with increasing symptoms of nausea and she vomited x2. She has epigastric and abdominal pain, no diarrhea, and she has generalized weakness and she also has lower chest pain and pain in the left jaw. In the ER, she was hemodynamically stable, her blood test unremarkable, EKG unremarkable, and initial troponin unremarkable too, but given the history, female patient with hypertensive heart disease, she was admitted to telemetry unit to rule out ACS. PAST MEDICAL HISTORY: Significant for hypertensive heart disease, spinal stenosis, cerebrovascular disease with a history of old lacunar infarct, hyperlipidemia, hypertension, history of squamous cell carcinoma of the uterus and history of aortic valve mass. PAST SURGICAL HISTORY: Total abdominal hysterectomy, removal of the tubes, excision of breast lesion on the left side in the past. FAMILY HISTORY: No significant family history in the family. SOCIAL HISTORY: She is single. She has 2 children. She does not smoke and does not drink. She lives with her daughter. REVIEW OF SYSTEMS: Other systemic review unremarkable except those mentioned in history of present complaint. ALLERGIES: SHE IS ALLERGIC TO CEPHALEXIN, ATENOLOL, TAXOL. MEDICATIONS: She has been on omeprazole 20 mg daily, Tylenol 1 gram 8 hourly p.r.n., atorvastatin 20 mg daily, Plavix 75 mg daily, losartan 100 mg daily, Toprol-XL 100 mg daily, verapamil 120 mg daily. PHYSICAL EXAMINATION: GENERAL: On examination in the Emergency Room, she was not having any acute distress. VITAL SIGNS: Temperature 36.6, pulse was 78, blood pressure 147/71, saturation 94% on room air. HEENT: Unremarkable. NECK: Supple. No JVD, no bruit. CHEST: Clear to auscultate bilaterally. HEART: S1, S2 regular. No definite murmur that I could appreciate. ABDOMEN: Soft, tender in the epigastrium and more or less all over, but no guarding or rigidity. Bowel sounds present. EXTREMITIES: Negative for any edema. MUSCULOSKELETAL: Did not show any acute arthritis involving any joint. CENTRAL NERVOUS SYSTEM: She was alert, awake, oriented x3. No focal sensory and/or motor deficit appreciated. LABORATORY DATA: Noted today, white count was 6.85, H&H 13.1/38.7, platelet was 285. Sodium 139, potassium 3.5, chloride 106, carbon dioxide 25, BUN 11, creatinine 0.66, random glucose was 95. LFTs unremarkable. Troponin less than 0.01. Coagulation unremarkable. EKG was in sinus rhythm, rate of 80 per minute, normal axis and minor nonspecific ST-T wave changes. Chest x-ray, no acute cardiopulmonary findings. CT of the abdomen and pelvis that was done in the morning reported as no pneumoperitoneum, no pneumatosis, no bowel wall thickening or obstruction, questionable thickening within the gastric wall is likely due to under distention, duodenal and colonic diverticula. IMPRESSION AND PLAN: 1. Atypical chest pain with history of hypertensive heart disease. The patient will be admitted to telemetry unit for observation. Serial cardiac enzymes to rule out acute coronary syndrome. Echocardiogram to evaluate cardiac function. She may need further evaluation with a stress test while in the hospital or as an outpatient. 2. Epigastric pain with nausea and vomiting and generalized aches and pains, maybe secondary to ongoing gastritis. She was found to have erosive gastropathy on esophagogastroduodenoscopy on 03/01/2017, she has been on omeprazole. We will change it to Protonix IV twice daily and also give her Maalox and Mylanta on top of that. 3. Hypertensive heart disease. Blood pressure is controlled. Continue with current medications. 4. Hyperlipidemia. Continue with statin. 5. Questionable aortic valve mass. We need to evaluate that with echocardiogram down the line. 6. Gastrointestinal prophylaxis, Protonix. 7. Deep venous thrombosis prophylaxis with subQ heparin. She has been on aspirin and Plavix as well. 8. Code status. She will be full code. In my clinical judgment, the beneficiary meets criteria as per CMS for 2-midnight stay in the hospital. MTDD
[2017-03-06 03:47] LABS: HEMATOCRIT 33.5 % (37-47); MEAN CELL VOLUME 85.7 fL (80-100); MEAN CORPUSCULAR HEMOGLOBIN 29.2 pg (25-34); MEAN PLATELET VOLUME 8.7 fL (7.4-10.4); PLATELET COUNT 242 K/uL (130-400); RED BLOOD COUNT 3.91 M/uL (4.2-5.4); WHITE BLOOD COUNT 5.28 K/uL (4.8-10.8)
[2017-03-06 04:09] LABS: BLOOD UREA NITROGEN 9 mg/dl (7-18); BUN/CREATININE RATIO 15.7 (10-20); CARBON DIOXIDE 27 mmol/L (21-32); CHLORIDE 114 mmol/L (98-107); CREATININE 0.59 mg/dl (0.60-1.20); GLUCOSE 72 mg/dl (70-99); MAGNESIUM 2.1 mg/dl (1.8-2.4); POTASSIUM 3.9 mmol/L (3.5-5.1); SODIUM 144 mmol/L (136-145)
[2017-03-06 04:15] LABS: CHOLESTEROL 120 mg/dl (0-200); CHOLESTEROL/HDL RATIO 2.8; CKMB/CK RATIO 1.7 (0-3.0); HDL CHOLESTEROL 43 mg/dl; LDL CHOLESTEROL CALCULATED 57 mg/dl; TRIGLYCERIDES 98 mg/dl (0-150); VERY LOW DENSITY LIPOPROT CALC 20 mg/dl
[2017-03-06] MEDS: HEPARIN SOD 5000 UNIT/0.5 ML CARP SQ SCH ×3 (05:22→21:29)
[2017-03-06] MEDS: ONDANSETRON INJ 2 MG/ML 2 ML VIAL IV PRN (08:06)
[2017-03-06] MEDS: NSS + 20MEQ KCL 1000ML 1,000 ML IV SCH ×2 (08:06→15:21)
[2017-03-06] MEDS: PANTOprazole INJ 40 MG in SYRINGE 0 ML IV SCH ×2 (08:06→21:23)
[2017-03-06] MEDS: LOSARTAN POTASSIUM 50 MG TAB PO SCH (08:09)
[2017-03-06] MEDS: METOPROLOL SUCC 50MG EXT REL TAB PO SCH (08:09)
[2017-03-06] MEDS: CLOPIDOGREL BISULFATE 75 MG TAB PO SCH (08:09)
[2017-03-06] MEDS: VERAPAMIL HCL 120 MG TABCR PO SCH (08:10)
[2017-03-06] MEDS: ACETAMINOPHEN 500 MG TAB PO PRN ×3 (08:14→23:50)
[2017-03-06 09:25] LABS: CKMB/CK RATIO 0.9 (0-3.0)
[2017-03-06 16:04] LABS: CKMB/CK RATIO 1.1 (0-3.0)
--- NOTE | 2017-03-06 20:24 | Progress Note ---
Medicine Progress Note Date & Time of Visit: Mar 06, 2017 at 18:50 . Subjective Epigastric pain improved. No chest pain. No cough or shortness of breath. Episode of vomiting this morning after eating breakfast, none since. Would like to try to advance her diet. Has not been ambulating outside of the room. . Objective Last 8 Hrs Date Time Temp Pulse Resp B/P (MAP) Pulse Ox O2 Delivery O2 Flow Rate FiO2 03/06/17 19:06 36.7 53 20 165/69 (101) 96 Room Air 183/73 (109) 03/06/17 15:13 36.8 57 20 156/82 (106) 95 Room Air Physical Exam: General- no distress Neck- no JVD Lungs- clear Heart- regular Abdomen- mild epigastric tenderness Back- left paraspinal tenderness lower thoracic region Extremities- no pretibial edema or calf tenderness Neuro- alert, oriented . Laboratory Results: Last 24 Hours Test 03/06/17 03:22 03/06/17 08:50 03/06/17 15:24 White Blood Count 5.28 K/uL Red Blood Count 3.91 M/uL Hemoglobin 11.4 g/dL Hematocrit 33.5 % Mean Corpuscular Volume 85.7 fL Mean Corpuscular Hemoglobin 29.2 pg Mean Corpuscular Hemoglobin Concent 34.0 g/dl RDW Standard Deviation 39.8 fL RDW Coefficient of Variation 12.8 % Platelet Count 242 K/uL Mean Platelet Volume 8.7 fL Sodium Level 144 mmol/L Potassium Level 3.9 mmol/L Chloride Level 114 mmol/L Carbon Dioxide Level 27 mmol/L Anion Gap 3.0 mmol/L Blood Urea Nitrogen 9 mg/dl Creatinine 0.59 mg/dl Est Creatinine Clear Calc Drug Dose 69.2 ml/min Estimated GFR () 113.1 Estimated GFR (Non- 97.5 BUN/Creatinine Ratio 15.7 Random Glucose 72 mg/dl Calcium Level 8.0 mg/dl Magnesium Level 2.1 mg/dl Total Creatine Kinase 54 U/L 65 U/L 82 U/L Creatine Kinase MB 0.9 ng/ml 0.6 ng/ml 0.9 ng/ml Creatine Kinase MB Ratio 1.7 0.9 1.1 Troponin I < 0.015 ng/ml < 0.015 ng/ml < 0.015 ng/ml Triglycerides Level 98 mg/dl Cholesterol Level 120 mg/dl HDL Cholesterol 43 mg/dl LDL Cholesterol, Calculated 57 mg/dl VLDL Cholesterol, Calculated 20 mg/dl Cholesterol/HDL Ratio 2.8 Assessment & Plan EPIGASTRIC PAIN EKG demonstrated nonspecific changes. Serial troponins negative x 4. Echo performed, report pending. Doubt cardiac etiology of symptoms. Increase activity. Consider stress testing if any ongoing concerns. CEREBROVASCULAR DISEASE Continue clopidogrel, statin, antihypertensive therapies. HYPERTENSION Continue metoprolol, verapamil, losartan. EROSIVE GASTROPATHY Noted on EGD 03/01/17. Continue PPI. VTE PROPHYLAXIS Subcutaneous heparin. Ambulate. DISPOSITION Expected discharge to home. Family Medicine follow-up with Dr. June Lantigua. . Procedures: Cardiac monitoring Intravenous medications Echocardiogram . Current Inpatient Medications: Current Inpatient Medications Medications (Trade) Dose Ordered Sig/Efren Route Start Time Stop Time Status Last Admin Dose Admin Heparin Sodium (Porcine) (Heparin Sq 5000 Unit/0.5ml) 5,000 unit Q8 SQ 03/06/17 06:00 04/05/17 05:59 03/06/17 15:21 5,000 UNIT Ondansetron HCl (Zofran Inj) 4 mg Q6H PRN IV 03/05/17 21:00 04/04/17 20:59 03/06/17 08:06 4 MG Acetaminophen (Tylenol Tab) 1,000 mg Q8 PRN PO 03/05/17 21:15 04/04/17 21:14 03/06/17 15:39 1,000 MG Atorvastatin Calcium (Lipitor Tab) 20 mg HS PO 03/06/17 21:00 04/05/17 20:59 Clopidogrel Bisulfate (plAVix TAB) 75 mg DAILY PO 03/06/17 09:00 04/05/17 08:59 03/06/17 08:09 75 MG Losartan Potassium (coZAAR TAB) 100 mg DAILY PO 03/06/17 09:00 04/05/17 08:59 03/06/17 08:09 100 MG Verapamil HCl (Calan-Sr Tab) 120 mg DAILY PO 03/06/17 09:00 04/05/17 08:59 03/06/17 08:10 120 MG Metoprolol Succinate (Toprol Xl Tab) 100 mg DAILY PO 03/06/17 09:00 04/05/17 08:59 03/06/17 08:09 100 MG Pantoprazole Sodium 40 mg/ Syringe 10 ml @ 5 mls/min DAILY@0921 IV 03/06/17 09:00 04/05/17 08:59 03/06/17 08:06 5 MLS/MIN Miscellaneous (Iv Fluids Completed) 1 ea PRN PRN N/A 03/05/17 21:30 03/05/18 21:29
[2017-03-06] MEDS: ATORVASTATIN 20 MG TAB PO SCH (21:22)
[2017-03-06 21:57] LABS: CKMB/CK RATIO 1.2 (0-3.0)
[2017-03-07] VITALS (7 sets, daily range): BP systolic 143–188; BP diastolic 73–101; PULSE 54–60; TEMP 36.6–36.8; O2SAT 91–97
[2017-03-07] MEDS: HEPARIN SOD 5000 UNIT/0.5 ML CARP SQ SCH ×3 (05:52→20:45)
[2017-03-07 06:01] LABS: HEMATOCRIT 38.6 % (37-47)
[2017-03-07] MEDS: METOPROLOL SUCC 50MG EXT REL TAB PO SCH (08:17)
[2017-03-07] MEDS: PANTOprazole INJ 40 MG in SYRINGE 0 ML IV SCH ×2 (08:18→20:45)
[2017-03-07] MEDS: LOSARTAN POTASSIUM 50 MG TAB PO SCH (08:18)
[2017-03-07] MEDS: CLOPIDOGREL BISULFATE 75 MG TAB PO SCH (08:19)
[2017-03-07] MEDS: VERAPAMIL HCL 120 MG TABCR PO SCH (08:19)
--- NOTE | 2017-03-07 08:35 | ECHOCARDIOGRAM REPORT ---
*NOTICE TO RECEIVING [employer] This information is strictly Confidential and protected under [place] law. [place] law prohibits you from making any further disclosure of this information unless further disclosure is expressly permitted by the written consent of the person to whom it pertains or is authorized by law. A general authorization for the release of medical or other information is not sufficient for this purpose. Hospital accepts no responsibility if the information is made available to any other person, INCLUDING THE PATIENT. Interpretation Summary * Name: CHRISTOPHER MOLINA Study Date: 03/06/2017 09:31 AM BP: 127/64 mmHg * Patient Location: [facility] HR: 60 * : 1955 (M/d/yyyy) Gender: Female Height: 59 in * Age: 61 yrs Ethnicity: Weight: 119 lb * Ordering Physician: Mariia Wolff * Performed By: Jazmyn Bautista * * Reason For Study: CHEST PAIN, HYPERTENSIVE HEART DISEASE * BSA: 1.5 m2 * -- Conclusions -- * Aortic valve sclerosis mild, without significant aortic valvular stenosis. * There is mild concentric left ventricular hypertrophy. * The left ventricular wall motion is normal. * The LV Ejection Fraction = 60-65%. * There is mild mitral annular calcification. * There is mild tricuspid regurgitation. * Doppler findings do not suggest pulmonary hypertension. * Grade I diastolic dysfunction, (abnormal relaxation pattern). Procedure Details * A complete two-dimensional transthoracic echocardiogram was performed (2D, M-mode, Doppler and color flow Doppler). Left Ventricle * The left ventricle is normal in size. * There is mild concentric left ventricular hypertrophy. * Left ventricular systolic function is normal. * Ejection Fraction = 60-65%. * The left ventricular wall motion is normal. Right Ventricle * The right ventricle is normal size. * The right ventricular systolic function is normal as assessed by tricuspid annular plane systolic excursion (TAPSE) (normal >1.5 cm). Atria * The left atrial size is normal. * Right atrial size is normal. * There is no evidence of atrial septal defect, but resolution does not allow assessment for a patent foramen ovale. Mitral Valve * There is mild mitral annular calcification. * There is no mitral valve stenosis. * Significant mitral regurgitation is absent. Tricuspid Valve * The tricuspid valve is normal. * There is no tricuspid stenosis. * There is mild tricuspid regurgitation. * Doppler findings do not suggest pulmonary hypertension. Aortic Valve * The aortic valve is trileaflet. * Aortic valve sclerosis mild, without significant aortic valvular stenosis. * Aortic stenosis is absent. * There is no significant aortic regurgitation. Pulmonic Valve * The pulmonary valve is not well seen, but the Doppler examination is normal without significant regurgitation or stenosis. Great Vessels * The aortic root and proximal ascending aorta are normal sized. Pericardium/Pleural * There is no pericardial effusion. Great Vessels * Normal inferior vena cava diameter and respiratory variation suggests normal central venous pressure. Left Ventricular Diastolic Function * Grade I diastolic dysfunction, (abnormal relaxation pattern). MMode 2D Measurements and Calculations IVSd 1.3 cm IVSs 2.1 cm LVIDd 3.7 cm LVIDs 2.4 cm LVPWd 1.0 cm LVPWs 1.6 cm IVS/LVPW 1.3 FS 34.2 % EDV(Teich) 56.6 ml ESV(Teich) 20.3 ml EF(Teich) 64.1 % EDV(cubed) 49.0 ml ESV(cubed) 14.0 ml EF(cubed) 71.5 % % IVS thick 63.5 % % LVPW thick 54.4 % LV mass(C)d 137.0 grams LV mass(C)dI 92.6 grams/m\S\2 LV mass(C)s 177.4 grams LV mass(C)sI 120.0 grams/m\S\2 SV(Teich) 36.3 ml SI(Teich) 24.6 ml/m\S\2 SV(cubed) 35.1 ml SI(cubed) 23.7 ml/m\S\2 ACS 0.94 cm LA dimension 3.9 cm asc Aorta Diam 2.9 cm LVOT diam 1.7 cm LVOT area 2.4 cm\S\2 LVAd ap4 23.9 cm\S\2 LVLd ap4 7.3 cm EDV(MOD-sp4) 65.0 ml EDV(sp4-el) 66.5 ml LVAs ap4 9.9 cm\S\2 LVLs ap4 5.6 cm ESV(MOD-sp4) 16.9 ml ESV(sp4-el) 14.9 ml EF(MOD-sp4) 73.9 % EF(sp4-el) 77.6 % LVAd ap2 21.7 cm\S\2 LVLd ap2 7.4 cm EDV(MOD-sp2) 54.1 ml EDV(sp2-el) 54.1 ml LVAs ap2 10.4 cm\S\2 LVLs ap2 5.8 cm ESV(MOD-sp2) 16.1 ml ESV(sp2-el) 15.8 ml EF(MOD-sp2) 70.3 % EF(sp2-el) 70.9 % LVLd %diff 1.7 % EDV(MOD-bp) 59.3 ml LVLs %diff 3.5 % ESV(MOD-bp) 16.5 ml EF(MOD-bp) 72.2 % SV(MOD-sp4) 48.1 ml SI(MOD-sp4) 32.5 ml/m\S\2 SV(MOD-sp2) 38.0 ml SI(MOD-sp2) 25.7 ml/m\S\2 SV(MOD-bp) 42.8 ml SI(MOD-bp) 28.9 ml/m\S\2 SV(sp4-el) 51.6 ml SI(sp4-el) 34.9 ml/m\S\2 SV(sp2-el) 38.3 ml SI(sp2-el) 25.9 ml/m\S\2 Doppler Measurements and Calculations MV E max nilsa 92.2 cm/sec MV A max nilsa 115.4 cm/sec MV E/A 0.80 MV dec time 0.19 sec Ao V2 max 112.7 cm/sec Ao max PG 5.1 mmHg Ao max PG (full) 0.05 mmHg FANY(V,A) 2.3 cm\S\2 FANY(V,D) 2.3 cm\S\2 LV V1 max PG 5.0 mmHg LV V1 max 112.2 cm/sec MR max nilsa 486.9 cm/sec MR max PG 94.9 mmHg PA V2 max 76.6 cm/sec PA max PG 2.3 mmHg TR max nilsa 248.0 cm/sec
[2017-03-07] MEDS: ONDANSETRON INJ 2 MG/ML 2 ML VIAL IV PRN (11:20)
[2017-03-07] MEDS: ACETAMINOPHEN 500 MG TAB PO PRN ×2 (11:21→19:30)
[2017-03-07] MEDS ORDERED: HYDROmorphone INJ 0.5 MG/0.5 ML SYR IV ONE (13:05)
[2017-03-07] MEDS ORDERED: HYDROmorphone INJ 0.5 MG/0.5 ML SYR IV PRN (13:15)
[2017-03-07] MEDS ORDERED: LORAZEPAM INJ 0.25 MG in SYRINGE 0.25 ML IV PRN (13:15)
[2017-03-07] MEDS ORDERED: SENNA 8.6 MG TAB PO ONE (15:00)
[2017-03-07] MEDS: ATORVASTATIN 20 MG TAB PO SCH (20:45)
--- NOTE | 2017-03-07 21:19 | Progress Note ---
Medicine Progress Note Date & Time of Visit: Mar 07, 2017 at 13:00 . Subjective Experienced back pain this morning associated with nausea and lightheadedness. Blood pressures in upper extremities were symmetric. No EKG changes. No shortness of breath. No emesis. . Objective Last 8 Hrs Date Time Temp Pulse Resp B/P (MAP) Pulse Ox O2 Delivery O2 Flow Rate FiO2 03/07/17 19:24 36.8 54 20 166/88 (114) 95 Room Air 03/07/17 17:08 36.8 57 20 164/77 (106) 93 Room Air 03/07/17 16:30 Room Air Physical Exam: General- somewhat uncomfortable, but does not appear to be in acute distress Neck- no JVD Lungs- clear Heart- regular Abdomen- normal bowel sounds, soft, nontender Back- paraspinal tenderness lower thoracic region reproduces back pain Extremities- no pretibial edema or calf tenderness Neuro- alert, oriented . Laboratory Results: Last 24 Hours Test 03/07/17 05:37 03/07/17 11:15 Hemoglobin 12.9 g/dL Hematocrit 38.6 % D-Dimer < 190 ug/L FEU Troponin I < 0.015 ng/ml Assessment & Plan EPIGASTRIC PAIN EKG demonstrated nonspecific changes. Serial troponins negative x 4. Echo performed, report pending. Doubt cardiac etiology of symptoms. Increase activity. Consider stress testing if any ongoing concerns. BACK PAIN Seems to be muscle skeletal in nature. Doubt aortic dissection or other acute process. Heating pad, analgesics. CEREBROVASCULAR DISEASE Continue clopidogrel, statin, antihypertensive therapies. HYPERTENSION Continue metoprolol, verapamil, losartan. EROSIVE GASTROPATHY Noted on EGD 03/01/17. Continue PPI. VTE PROPHYLAXIS Subcutaneous heparin. Ambulate. DISPOSITION Expected discharge to home. Family Medicine follow-up with Dr. June Lantigua. . Procedures: Cardiac monitoring Intravenous medications Echocardiogram . Current Inpatient Medications: Current Inpatient Medications Medications (Trade) Dose Ordered Sig/Efren Route Start Time Stop Time Status Last Admin Dose Admin Heparin Sodium (Porcine) (Heparin Sq 5000 Unit/0.5ml) 5,000 unit Q8 SQ 03/06/17 06:00 04/05/17 05:59 03/07/17 20:45 5,000 UNIT Ondansetron HCl (Zofran Inj) 4 mg Q6H PRN IV 03/05/17 21:00 04/04/17 20:59 03/07/17 11:20 4 MG Acetaminophen (Tylenol Tab) 1,000 mg Q8 PRN PO 03/05/17 21:15 04/04/17 21:14 03/07/17 19:30 1,000 MG Atorvastatin Calcium (Lipitor Tab) 20 mg HS PO 03/06/17 21:00 04/05/17 20:59 03/07/17 20:45 20 MG Clopidogrel Bisulfate (plAVix TAB) 75 mg DAILY PO 03/06/17 09:00 04/05/17 08:59 03/07/17 08:19 75 MG Losartan Potassium (coZAAR TAB) 100 mg DAILY PO 03/06/17 09:00 04/05/17 08:59 03/07/17 08:18 100 MG Verapamil HCl (Calan-Sr Tab) 120 mg DAILY PO 03/06/17 09:00 04/05/17 08:59 03/07/17 08:19 120 MG Metoprolol Succinate (Toprol Xl Tab) 100 mg DAILY PO 03/06/17 09:00 04/05/17 08:59 03/07/17 08:17 100 MG Pantoprazole Sodium 40 mg/ Syringe 10 ml @ 5 mls/min DAILY@ IV 03/06/17 09:00 04/05/17 08:59 03/07/17 20:45 5 MLS/MIN Miscellaneous (Iv Fluids Completed) 1 ea PRN PRN N/A 03/05/17 21:30 03/05/18 21:29 Hydromorphone HCl (Dilaudid Inj) 0.5 mg Q2H PRN IV 03/07/17 13:15 03/21/17 13:14 Lorazepam 0.25 mg/ Syringe 0.375 ml @ 0.5 mls/min Q4H PRN IV 03/07/17 13:15 04/06/17 13:14 Senna (Senokot Tab) 17.2 mg QAM PO 03/08/17 09:00 04/07/17 08:59
[2017-03-08] VITALS: BP 136/74; PULSE 59; TEMP 36.4; O2SAT 94
[2017-03-08 04:00] VITALS: BP 127/73; PULSE 58; TEMP 36.6; O2SAT 95
[2017-03-08] MEDS: HEPARIN SOD 5000 UNIT/0.5 ML CARP SQ SCH ×2 (05:52→14:00)
[2017-03-08 07:23] VITALS: BP 130/74; PULSE 70; TEMP 36.6; O2SAT 95
[2017-03-08 08:00] VITALS: O2SAT 98
[2017-03-08] MEDS: ACETAMINOPHEN 500 MG TAB PO PRN (08:42)
[2017-03-08] MEDS: PANTOprazole INJ 40 MG in SYRINGE 0 ML IV SCH (08:42)
[2017-03-08] MEDS: CLOPIDOGREL BISULFATE 75 MG TAB PO SCH (08:42)
[2017-03-08] MEDS: ONDANSETRON INJ 2 MG/ML 2 ML VIAL IV PRN (08:42)
[2017-03-08] MEDS: LOSARTAN POTASSIUM 50 MG TAB PO SCH (08:43)
[2017-03-08] MEDS: METOPROLOL SUCC 50MG EXT REL TAB PO SCH (08:43)
[2017-03-08] MEDS: VERAPAMIL HCL 120 MG TABCR PO SCH (08:44)
[2017-03-08] MEDS ORDERED: SENNA 8.6 MG TAB PO SCH (09:00)
--- NOTE | 2017-03-08 12:44 | Progress Note ---
Medicine Progress Note Date & Time of Visit: Mar 08, 2017 at 12:44 . Subjective No chest pain. Back pain improved. Had a few loose stools this morning. Has history of C diff. Was having loose stools at home and C diff was ordered in clinic, but not yet performed. . Objective Last 8 Hrs Date Time Temp Pulse Resp B/P (MAP) Pulse Ox O2 Delivery O2 Flow Rate FiO2 03/08/17 07:23 36.6 70 18 130/74 (92) 95 Room Air Physical Exam: General- no distress acute distress Neck- no JVD Lungs- clear Heart- regular Abdomen- normal bowel sounds, soft, nontender Back- less paraspinal tenderness lower thoracic region Extremities- no pretibial edema or calf tenderness Neuro- alert, oriented . Laboratory Results: Date/Time Source Procedure Growth Status 03/08/17 09:38 Stool C.difficile Toxin B Gene (PCR) - Final Positive for C. difficile toxin B gene Complete Assessment & Plan EPIGASTRIC PAIN EKG demonstrated nonspecific changes. Serial troponins negative x 4. Echo performed, report pending. Doubt cardiac etiology of symptoms. Increase activity. Consider stress testing if any ongoing concerns. BACK PAIN Seems to be muscle skeletal in nature. Doubt aortic dissection or other acute process. Improved with heating pad, analgesics. CEREBROVASCULAR DISEASE Continue clopidogrel, statin, antihypertensive therapies. HYPERTENSION Continue metoprolol, verapamil, losartan. EROSIVE GASTROPATHY Noted on EGD 03/01/17. Continue PPI. RECURRENT C DIFF History of C diff in 2013, 2014, and 2016 x 2. Loose stools at home prior to admission. Loose stool this morning- + for C diff. Treat with vanco taper / pulse. VTE PROPHYLAXIS Subcutaneous heparin. Ambulate. DISPOSITION Expected discharge to home. Family Medicine follow-up with Dr. June Lantigua. . Procedures: Cardiac monitoring Intravenous medications Echocardiogram . Current Inpatient Medications: Current Inpatient Medications Medications (Trade) Dose Ordered Sig/Efren Route Start Time Stop Time Status Last Admin Dose Admin Heparin Sodium (Porcine) (Heparin Sq 5000 Unit/0.5ml) 5,000 unit Q8 SQ 03/06/17 06:00 04/05/17 05:59 03/08/17 05:52 5,000 UNIT Ondansetron HCl (Zofran Inj) 4 mg Q6H PRN IV 03/05/17 21:00 04/04/17 20:59 03/08/17 08:42 4 MG Acetaminophen (Tylenol Tab) 1,000 mg Q8 PRN PO 03/05/17 21:15 04/04/17 21:14 03/08/17 08:42 1,000 MG Atorvastatin Calcium (Lipitor Tab) 20 mg HS PO 03/06/17 21:00 04/05/17 20:59 03/07/17 20:45 20 MG Clopidogrel Bisulfate (plAVix TAB) 75 mg DAILY PO 03/06/17 09:00 04/05/17 08:59 03/08/17 08:42 75 MG Losartan Potassium (coZAAR TAB) 100 mg DAILY PO 03/06/17 09:00 04/05/17 08:59 03/08/17 08:43 100 MG Verapamil HCl (Calan-Sr Tab) 120 mg DAILY PO 03/06/17 09:00 04/05/17 08:59 03/08/17 08:44 120 MG Metoprolol Succinate (Toprol Xl Tab) 100 mg DAILY PO 03/06/17 09:00 04/05/17 08:59 03/08/17 08:43 100 MG Pantoprazole Sodium 40 mg/ Syringe 10 ml @ 5 mls/min DAILY@ IV 03/06/17 09:00 04/05/17 08:59 03/08/17 08:42 5 MLS/MIN Miscellaneous (Iv Fluids Completed) 1 ea PRN PRN N/A 03/05/17 21:30 03/05/18 21:29 Hydromorphone HCl (Dilaudid Inj) 0.5 mg Q2H PRN IV 03/07/17 13:15 03/21/17 13:14 Lorazepam 0.25 mg/ Syringe 0.375 ml @ 0.5 mls/min Q4H PRN IV 03/07/17 13:15 04/06/17 13:14 03/08/17 09:17 0.5 MLS/MIN Senna (Senokot Tab) 17.2 mg QAM PO 03/08/17 09:00 04/07/17 08:59
[2017-03-08] MEDS ORDERED: VANC5CAP PO (12:52)
--- NOTE | 2017-03-08 12:59 | Discharge Instructions ---
Discharge Instructions Date of Service Mar 08, 2017. Admission Reason for Admission: chest pain, back pain . Discharge Discharge Diagnosis / Problem: chest pain, back pain Discharge Goals Goal(s): Decrease discomfort, Improve disease control Activity Recommendations Activity Limitations: resume your previous activity . Instructions / Follow-Up Instructions / Follow-Up FOLLOW-UP APPOINTMENTS: FAMILY MEDICINE 03/11/2017 11:00 AM June Lantigua, DO NEW MEDICATIONS: vancomycin for recurrent C diff 1 pill 4 times a day for 7 days then 1 pill twice a day for 7 days then 1 pill daily for 7 days then 1 pill every 2 days for 7 days then 1 pill every 3 days for 14 days OTHER INSTRUCTIONS: Heating pad or massage for back pain. Let Dr. Lantigua know if pain doesn't get better. Seek medical attention if you have: * temperature above 101 * chest pain or trouble breathing * abdominal pain, nausea, vomiting * diarrhea, dark stools or bloody stools * any unanswered questions or concerns Call 911 if symptoms are severe. You can reach [facility] on duty at [facility] 24 hours a day by calling [phone]. Please take good care of yourself. Celio Carrero . Current Hospital Diet Patient's current hospital diet: AHA Diet (Heart Healthy) Discharge Diet Recommended Diet: AHA Diet (Heart Healthy) Pending Studies Studies pending at discharge: no Laboratory Results Lipid Panel Test 03/06/17 03:22 Range/Units Triglycerides Level 98 0-150 mg/dl Cholesterol Level 120 0-200 mg/dl HDL Cholesterol 43 mg/dl Cholesterol/HDL Ratio 2.8 LDL Cholesterol, Calculated 57 mg/dl Medical Emergencies . Who to Call and When: Medical Emergencies: If at any time you feel your situation is an emergency, please call 911 immediately. . Non-Emergent Contact Non-Emergency issues call your: Primary Care Provider, Hospital Doctor . . "Provider Documentation" section prepared by Celio Carrero. . VTE Core Measure Inpt VTE Proph given/why not?: Unfractionated heparin SQ
[2017-03-08 14:07] VITALS: BP 130/74; PULSE 70; TEMP 36.6; O2SAT 95
--- NOTE | 2017-03-08 20:51 | Discharge Summary ---
Discharge Summary Date of Service Mar 08, 2017. Discharge Summary Admission Date: Mar 05, 2017 at 21:14 Discharge Date: Mar 08, 2017 Discharge Disposition: Home Principal Diagnosis: epigastric pain . 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 Procedures: Cardiac monitoring Intravenous medications Echocardiogram . Medication Reconciliation New Medications: Vancomycin Hcl (Vancomycin) 125 Mg Cap 125 MG PO UD, #58 CAP 4 times a day for 7 days twice a day for 7 days once a day for 7 days every 2 days for 7 days every 3 days for 14 days Continued Medications: Acetaminophen (Tylenol Extra Strength) 500 Mg Tab 1000 MG PO Q8 PRN for Pain Atorvastatin (Atorvastatin Calcium) 20 Mg Tab 20 MG PO HS, #30 Clopidogrel Bisulfate (Clopidogrel) 75 Mg Tab 75 MG PO DAILY, #30 Losartan Potassium (Cozaar) 100 Mg Tab 100 MG PO DAILY, #30 Metoprolol Succinate (Metoprolol Succinate ER) 100 Mg Tabcr 100 MG PO DAILY Omeprazole (Prilosec) 20 Mg Capcr 20 MG PO DAILY Verapamil HCl (Verapamil HCl ER) 120 Mg Tabcr 120 MG PO DAILY, #30 Admission Information HPI (per Admitting provider): She is a 61-year-old female with significant past medical history of hypertensive heart disease without CHF, history of spina stenosis, cerebrovascular disease, hyperlipidemia, history of squamous cell carcinoma of the uterus, old lacunar infarct without late effect, aortic valve mass, dizziness and hypertension. Apparently underwent EGD on 03/01/2017 as an outpatient for globus hystericus type of picture. The endoscopy did show erosive gastropathy and she has been on omeprazole for that. Since 8th, she was having some pain in the epigastrium with some nausea. It has been ongoing. She called the doctor's office and had an appointment to see the doctor today. She went to see the doctor today, and in the meantime, she complained to have pain involving more or less all over the body and also generalized weakness associated with nausea and she did have pain in the lower chest and also jaw area. She was sent into the Emergency Room in the morning. In the ER, she underwent a CAT scan of the abdomen and pelvis and that did not show any significant findings, specifically there was no pneumoperitoneum and there was questionable gastric wall thickening but nothing else. She was sent home. She is back with increasing symptoms of nausea and she vomited x2. She has epigastric and abdominal pain, no diarrhea, and she has generalized weakness and she also has lower chest pain and pain in the left jaw. In the ER, she was hemodynamically stable, her blood test unremarkable, EKG unremarkable, and initial troponin unremarkable too, but given the history, female patient with hypertensive heart disease, she was admitted to telemetry unit to rule out ACS. . Physical Exam (per Admitting): GENERAL: On examination in the Emergency Room, she was not having any acute distress. VITAL SIGNS: Temperature 36.6, pulse was 78, blood pressure 147/71, saturation 94% on room air. HEENT: Unremarkable. NECK: Supple. No JVD, no bruit. CHEST: Clear to auscultate bilaterally. HEART: S1, S2 regular. No definite murmur that I could appreciate. ABDOMEN: Soft, tender in the epigastrium and more or less all over, but no guarding or rigidity. Bowel sounds present. EXTREMITIES: Negative for any edema. MUSCULOSKELETAL: Did not show any acute arthritis involving any joint. CENTRAL NERVOUS SYSTEM: She was alert, awake, oriented x3. No focal sensory and/or motor deficit appreciated. . Hospital Course EPIGASTRIC PAIN EKG demonstrated nonspecific changes. Serial troponins negative x 4. Echo - mild concentric LVH, no segmental wall motion abnormalities. Doubt cardiac etiology of symptoms. Recent EGD demonstrated gastropathy. Continue PPI. Consider outpatient stress test if ongoing concerns. BACK PAIN Localized left lower thoracic paraspinal tenderness. Seemed to be muscle skeletal in nature. Doubt aortic dissection or other acute process. Improved with heating pad, analgesics. CEREBROVASCULAR DISEASE Continue clopidogrel, statin, antihypertensive therapies. HYPERTENSION Continue metoprolol, verapamil, losartan. EROSIVE GASTROPATHY Noted on EGD 03/01/17. Continue PPI. RECURRENT C DIFF History of C diff in 2013, 2014, and 2016 x 2. Loose stools at home prior to admission. Loose stool 03/08 + for C diff. Treat with vanco taper / pulse. VTE PROPHYLAXIS Subcutaneous heparin. Ambulate. DISPOSITION Discharge to home. Family Medicine follow-up with Dr. June Lantigua. . Discharge Instructions Date of Service Mar 08, 2017. Admission Reason for Admission: chest pain, back pain . Discharge Discharge Diagnosis / Problem: chest pain, back pain Discharge Goals Goal(s): Decrease discomfort, Improve disease control Activity Recommendations Activity Limitations: resume your previous activity . Instructions / Follow-Up Instructions / Follow-Up FOLLOW-UP APPOINTMENTS: FAMILY MEDICINE 03/11/2017 11:00 AM June Lantigua, DO NEW MEDICATIONS: vancomycin for recurrent C diff 1 pill 4 times a day for 7 days then 1 pill twice a day for 7 days then 1 pill daily for 7 days then 1 pill every 2 days for 7 days then 1 pill every 3 days for 14 days OTHER INSTRUCTIONS: Heating pad or massage for back pain. Let Dr. Lantigua know if pain doesn't get better. Seek medical attention if you have: * temperature above 101 * chest pain or trouble breathing * abdominal pain, nausea, vomiting * diarrhea, dark stools or bloody stools * any unanswered questions or concerns Call 911 if symptoms are severe. You can reach [employer] Hospitalist on duty at [facility] 24 hours a day by calling [phone]. Please take good care of yourself. Celio Carrero . Current Hospital Diet Patient's current hospital diet: AHA Diet (Heart Healthy) Discharge Diet Recommended Diet: AHA Diet (Heart Healthy) Pending Studies Studies pending at discharge: no Laboratory Results Lipid Panel Test 03/06/17 03:22 Range/Units Triglycerides Level 98 0-150 mg/dl Cholesterol Level 120 0-200 mg/dl HDL Cholesterol 43 mg/dl Cholesterol/HDL Ratio 2.8 LDL Cholesterol, Calculated 57 mg/dl Medical Emergencies . Who to Call and When: Medical Emergencies: If at any time you feel your situation is an emergency, please call 911 immediately. . Non-Emergent Contact Non-Emergency issues call your: Primary Care Provider, Hospital Doctor . . "Provider Documentation" section prepared by Celio Carrero. . VTE Core Measure Inpt VTE Proph given/why not?: Unfractionated heparin SQ Additional Copies To June Lantigua D.O.
== END 2017-03-08 18:25 | disposition home or self-care (01) ==
LOC: C.EDB 18:28 → C.2T 21:14 → ENRESERV 21:24
PROVIDERS: ADMIT Internal Medicine; ATTEND Hospitalist
DX: R10.13 Epigastric pain (principal); A04.7 Enterocolitis due to Clostridium difficile; I35.8 Other nonrheumatic aortic valve disorders; I11.9 Hypertensive heart disease without heart failure; E78.5 Hyperlipidemia, unspecified; K31.9 Disease of stomach and duodenum, unspecified; M48.02 Spinal stenosis, cervical region; Z86.73 Personal history of transient ischemic attack (TIA), and cerebral infarction without residual deficits; Z79.02 Long term (current) use of antithrombotics/antiplatelets; Z79.899 Other long term (current) drug therapy

== ENCOUNTER → 2017-04-11 | Outpatient (CLI) | payer OTHER ==
[~2017-04-11] MED LIST changes: -CALC-354 PO; -CALCTAB23 PO; +VANC5CAP PO; -[UNRECOGNIZED DRUG - CODE] OP
--- NOTE | 2017-04-11 11:50 | DIAGNOSTIC IMAGING REPORT ---
VIDEO SWALLOW HISTORY: Dysphagia FOREIGN BODY SENSATION TECHNIQUE: Video fluoroscopic evaluation of swallowing was performed in the AP and lateral projections by the speech pathology staff. The patient is fed nectar-thick and thin liquid barium, a barium coated wafer, and barium pudding. FLUOROSCOPY TIME: 2.5 minutes. COMPARISON STUDY: None. FINDINGS: There is normal hyoid excursion and epiglottic deflection. No significant penetration or aspiration identified. Swallowing function is within normal limits. Mild esophageal dysmotility IMPRESSION: 1. No aspiration identified. Mild esophageal dysmotility 2. Please see the speech pathologist report for detailed findings and recommendations. The above report was generated using voice recognition software. It may contain grammatical, syntax or spelling errors. Electronically signed by: Maurizio Marion M.D. 04/11/2017 11:49 AM Dictated Date/Time: 04/11/2017 11:48 AM
--- NOTE | 2017-04-11 15:04 | SWALLOWING EVALUATION ---
HISTORY: This 62 year old woman was referred for a video swallow study at [facility] in order to rule out aspiration and identify the safest consistencies for optimal oral intake. The patient reports the sensation of food and liquid becoming stuck in her throat. She is also reporting that food/liquid will "come back up", including water. PMH is significant for uterine cancer, recurrent C-diff, CVA x2 cervical spinal stenosis and dysplasia, HTN. Current diet is regular. PROCEDURE: The patient was seen in the Radiology Department of [facility] for the VFSS. Cursory examination of the oral cavity revealed natural dentition in good condition. Oral motor function was wnl. The patient was seated on a stool and was viewed in both the Anterior-Posterior (A-P) and Lateral planes. Volitional phonation exercises completed in the A-P plane revealed bilateral vocal fold movement and vocal intensity within functional limits. In the lateral plane, the patient was given the following boluses: 1 tsp. thin liquid barium x 2, single swallow thin liquid barium self-presented from a cup, sequential swallows of thin liquid barium self-presented from a straw, 1 tsp. nectar-thick liquid barium, single swallow nectar-thick liquid barium self-presented from a cup, 1 tsp. barium pudding, and 1 club cracker coated in barium pudding. The patient was then repositioned into the A-P plane and given the following boluses: 1 tsp. nectar thick barium and 1 tsp. barium pudding. RESULTS: Oral Stage: Lip closure was adequate. The patient was able to maintain a cohesive liquid bolus in the oral cavity without any escape during the liquid bolus hold task. Mastication was mildly slow. Lingual motion for bolus transport was noted to be repetitive and disorganized. There was retention lining the tongue and palate after the initial swallow. The initiation of the pharyngeal swallow occurred when the bolus head reached the valleculae. Pharyngeal Stage: Soft palate elevation was complete. Laryngeal elevation revealed complete superior movement of the thyroid cartilage with complete approximation of the arytenoids to the epiglottic base. Anterior hyoid excursion and epiglottic deflection were complete. Laryngeal vestibular closure was complete. The pharyngeal stripping wave was present and complete. Pharyngeal contraction was complete. There was complete distention and duration of the opening to the pharyngoesophageal segment (PES). Tongue base retraction was reduced, with a trace column of contrast located between the tongue base and pharyngeal wall during the swallow. There was trace retention located in the valleculae after the swallow. There was no evidence of laryngeal penetration or aspiration during this study. There was minimal retention located in the pharynx after the swallow as well. Esophageal stage: There was mild mid-distal esophageal retention with retrograde flow below the PES suggestive of esophageal dysmotility. A liquid wash assisted to clear some of the retention but not fully. SUMMARY/RECOMMENDATIONS: This patient presents with mild marcelino-pharyngeal swallowing mechanics. She presents with s/s of esophageal dysphagia. The following is recommended: 1. Regular diet, "slippery" and thin liquids. 2. GERD precautions. Fully upright for meals and for 30 minutes after meals. Do not lay flat. 3. Safe swallow strategies: Avoid foods that are dry, thick, pasty, or doughy. Use of condiments such as gravy to assist with making foods moist. Rest breaks while eating. Alternate solids and liquids. Small frequent meals. 4. Follow up with PCP. Consider GI consultation and/or medication management for esophageal dysfunction as indicated. A summary of the results and recommendations was discussed with the patient immediately following the study with verbal understanding. The patient was also provided with verbal and written education regarding a "slippery" diet for improved comfort while eating (avoiding foods that are dry, thick, pasty, or doughy) as needed. She verbalized understanding. She also reported she feel as though her medication for reflux do not assist in decreasing her symptoms. Would recommend modification of medications (as indicated) in addition to the slippery diet to assist. Thank you for referral of this patient. Please contact me at if any additional information is needed.
== END | disposition home or self-care (01) ==
LOC: C.RAD 10:57
PROVIDERS: ATTEND Student in an Organized Health Care Education/Training Program
DX: K22.8 Other specified diseases of esophagus (principal); R09.89 Other specified symptoms and signs involving the circulatory and respiratory systems